=== PATIENT | female | born 1990 | race Caucasian/White ===

== ENCOUNTER 2025-10-29 12:20 | Emergency (ER) | payer BC, SELFPAY ==
--- OUTSIDE RECORDS SUMMARY | 2025-03-04 03:40 | XMS_ITS ---
Author Organization [facility] Address [address] [place] [address] Care Team Providers Care Preparer Samples And Repairs Name Role Phone NO PCP Primary Care Provider UnavailShruthi Henao Unavailable [phone] REASON FOR VISIT Weight Management (Virtual Visit) - CANCELLED Encounters Encounter Location Date Provider Diagnosis [address] [address] 03/04/2025 Shruthi Fan Plan Of Treatment No Information Progress Notes * Lennie MAGAÑADOB:[birth year] (35 yo F)Acc No.[id number]:03/04/2025 Patient: Lennie PELAEZ Provider: Maude Fan APRN :1990 A ge:34 Y S ex:Female Date:03/04/2025 External Visit ID:[id number] [id number] Pcp:NO PCP Subjective: * Chief Complaints: * 1 . Weight Management (Virtual Visit) - CANCELLED. 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
--- OUTSIDE RECORDS SUMMARY | 2025-08-30 03:26 | XMS_ITS | Encounter Summary ---
Author Organization [place] [address] Care Team Providers Care Marketing Sales Manager Name Role Phone Unavailable Primary Care Provider Unavailabl e Reason for Visit * Reason Comments Abdominal Pain Pt states she began with belching (sulfa-like smell and taste) and then around 2100 she began with LUQ pain. Pt also reports darker colored stools than normal. +n/v CPTA: none Encounter Details Date Type Department Care Team (Late st Contact Info) Description 2025 4:26 AM EDT - 2025 7:18 AM EDT [facility] [place] [address] Alberto Crenshaw MD [address] [place] [id number] Abdominal pain, unspecified abdominal location (Primary Dx); Vomiting and diarrhea Discharge Disposition: Home or Self Care Social History Tobacco Use Types Packs/Day Years Used Date Smoking Tobacco: Never Smokeless Tobacco: Never Alcohol Use Standard Drinks/Week Comments Yes 0 (1 standard drink = 0.6 oz pur e alcohol) social rare AUDIT-C Answer Date Recorded Q1: How often do you have a drink containing alc ohol? Never 10/03/2020 Average Number of Drinks Not on file 020 Frequency of Binge Drinking Not on file 09/10 Sexually Active Control Partners Comments Not Currently Comments No Sex and Gender Information Value Date Recorded Sex Assigned at Not on file Legal Sex Female 6:31 PM EDT Gender Identity Not on file Sexual Orientation Not on file documented as of this encounter Last Filed Vital Signs Vital Sign Reading Time Taken Comments Blood Pressure 109/68 2025 6:58 AM EDT Pulse 92 2025 4:20 AM EDT Temperature 36.6 C (97.9 F) 2025 4:33 AM EDT Respiratory Rate 20 2025 4:20 AM EDT Oxygen Saturation 94% 2025 7:00 AM EDT Inhaled Oxygen Concentration - - Weight 95.7 kg (211 lb) 2025 4:20 AM EDT Height 160 cm (5' 3 ) 2025 4:20 AM EDT Body Mass Index 37.38 2025 4:20 AM EDT documented in this encounter Discharge Instructions * Discharge Instructions* Alberto Crenshaw MD - 2025 7:03 AM EDT Images from the original note were not included. Dear Lennie Magaña, As we discussed, your workup today including any blood work and/or imaging that we obtained revealed: reassuring CT scan Hold Wegovy. Take zofran first and if that is not improving nausea take relan Please follow-up with a primary care provider in 2-3 days. If you do not have a primary care physician please contact your insurance provider or refer to the supplementary information you were provided with to establish care with a new physician. In addition, return to the ER immediately if: - Your symptoms worsen or do not improve as we discussed - You develop a fever (greater than 101 F) - You have new or worsening chest pain, shortness of breath, abdominal pain, or uncontrollable vomiting - You are unable to eat or drink - You pass out - You have difficulty moving your arms or legs - You have new numbness - You have difficulty speaking or slurred speech - Or you have any other concerns that you feel warrants ER evaluation It was an absolute pleasure taking care of you! No future appointments. documented in this encounter Medications at Time of Discharge famotidine (PEPCID) 20 mg Oral Tablet Take 1 Tablet by mouth 2 times daily for 15 days. 30 Tablet 2025 09/13/2025 loratadine (CLARITIN) 10 mg Oral Tablet Take 10 mg by mouth daily. 09/28/2025 metFORMIN XR (GLUCOPHAGE-XR) 750 mg Oral Tablet Sustained Release 24 hr Take 750 mg by mouth daily. 09/28/2025 metoclopramide HCl (REGLAN) 10 mg Oral Tablet Take 1 Tablet by mouth every 8 hours as needed for Nausea for up to 30 days. 20 Tablet 2025 09/13/2025 montelukast (SINGULAIR) 10 mg Oral Tablet Take 10 mg by mouth every evening. 09/28/2025 norgestimate-eth inyl estradiol (ORTHO TRI-CYCLEN;TRI-S PRINTEC) 0.18/0.215/0.25 mg-35 mcg (28) Oral Tablet Take 1 Tab by mouth daily. 09/28/2025 ondansetron (ZOFRAN-ODT) 4 mg Oral Tablet, Rapid Dissolve Dissolve 1 Tablet by mouth every 6 hours as needed for Nausea for up to 30 days. 12 Tablet 2025 09/29/2025 sertraline (ZOLOFT) 50 mg Oral Tablet Take 75 mg by mouth daily. 09/28/2025 topiramate (TOPAMAX) 25 mg Oral Tablet Take by mouth 2 times daily. 09/28/2025 documented as of this encounter Ordered Prescriptions Prescription Sig Dispense Quantity Refills Last Filled Start Date End Date metoclopramide HCl (REGLAN) 10 mg Oral Tablet Take 1 Tablet by mouth every 8 hours as needed for Nausea for up to 30 days. 20 Tablet 2025 5 ondansetron (ZOFRAN-ODT) 4 mg Oral Tablet, Rapid Dissolve Dissolve 1 Tablet by mouth every 6 hours as needed for Nausea for up to 30 days. 12 Tablet 2025 5 famotidine (PEPCID) 20 mg Oral Tablet Take 1 Tablet by mouth 2 times daily for 15 days. 30 Tablet 2025 5 documented in this encounter Discharge Disposition Disposition Code Departure Means Destination Comment s Home or Self [facility] documented in this encounter ED Notes * Lary Oliveros NP - 2025 4:18 AM EDT Chief Complaint Patient presents with ??? Abdominal Pain Pt states she began with belching (sulfa-like smell and taste) and then around 2099 she began with LUQ pain. Pt also reports darker colored stools than normal. +n/v CPTA: none Lennie Magaña is a 35 y.o. female with history of previous cholecystectomy and asthma who presents emergency department for evaluation of abdominal pain with vomiting and diarrhea. Patient states she started with stomach upset yesterday around 3 PM. She did try taking Tums with minimal relief. Around 9 PM she began having upper abdominal pain that waxes and wanes. Currently rating it a 5 out of 10 but states it does spike to an 8 out of 10. She has had nausea with associated vomiting. She reports 2 episodes of yellow to green-colored emesis. She had initially some loose stool followed by 1 diarrhea stool. She complains of rotten egg smelling belching. She has had no fever, bodyaches, or chills. She has taken no medications prior to arrival. She denies known ill contacts. States she did have some similar symptoms with vomiting and diarrhea 2 additional times in the past 2 weeks. She states the abdominal pain and foul-smelling belching is new. Patient denies alcohol consumption. Last menstrual period began yesterday. Patient History Allergies[1] Home Medications: Prior to Admission medications Medication Sig Start Date End Date Last Dose Authorizing Provider loratadine (CLARITIN) 10 mg Oral Tablet Take 10 mg by mouth daily. Provider, Historical metFORMIN XR (GLUCOPHAGE-XR) 750 mg Oral Tablet Sustained Release 24 hr Take 750 mg by mouth daily.Provider, Historical montelukast (SINGULAIR) 10 mg Oral Tablet Take 10 mg by mouth every evening. Provider, Historical norgestimate-ethinyl estradiol (ORTHO TRI-CYCLEN;TRI-SPRINTEC) 0.18/0.215/0.25 mg-35 mcg (28) Oral Tablet Take 1 Tab by mouth daily. Provider, Historical sertraline (ZOLOFT) 50 mg Oral Tablet Take 75 mg by mouth daily. Provider, Historical topiramate (TOPAMAX) 25 mg Oral Tablet Take by mouth 2 times daily. Provider, Historical Past Medical History: Past Medical History[2] Social History: reports that she has never smoked. She has never used smokeless tobacco. She reports current alcohol use. She reports that she is not currently sexually active. She reports that she does not use drugs. E-Cigarettes (such as Vapes or Juul) ??? E-Cigarette Use Never User Family History: Family History[3] Surgical History: Surgical History[4] Review of Systems Review of Systems Constitutional: Negative for chills and fever. HENT: Negative. Eyes: Negative. Respiratory: Negative for cough and shortness of breath. Cardiovascular: Negative for chest pain, palpitations and leg swelling. Gastrointestinal: Positive for abdominal pain, diarrhea, nausea and vomiting. Genitourinary: Negative for dysuria and frequency. Musculoskeletal: Negative. Skin: Negative for rash. Neurological: Negative. Psychiatric/Behavioral: Negative. All other systems reviewed and are negative. Physical Exam Blood pressure 139/94, pulse 92, temperature 97.9 ??F (36.6 ??C), temperature source Oral, resp. rate 20, height 5' 3 (1.6 m), weight 211 lb (95.7 kg), last menstrual period 08/29/2025, SpO2 98%, not currently . Physical Exam Vitals and nursing note reviewed. Constitutional: General: She is not in acute distress. Appearance: She is well-developed. She is not ill-appearing, toxic-appearing or diaphoretic. HENT: Head: Normocephalic and atraumatic. Eyes: Conjunctiva/sclera: Conjunctivae normal. Pupils: Pupils are equal, round, and reactive to light. Cardiovascular: Rate and Rhythm: Normal rate and regular rhythm. Heart sounds: Normal heart sounds. No murmur heard. No friction rub. No gallop. Pulmonary: Effort: Pulmonary effort is normal. No respiratory distress. Breath sounds: Normal breath sounds. No stridor. No wheezing, rhonchi or rales. Abdominal: General: Bowel sounds are normal. There is no distension. Palpations: Abdomen is soft. Tenderness: There is generalized abdominal tenderness and tenderness in the right upper quadrant, epigastric area and left upper quadrant. There is no guarding or rebound. Negative signs include McBurney's sign. Hernia: No hernia is present. Musculoskeletal: Cervical back: Normal range of motion and neck supple. Lymphadenopathy: Cervical: No cervical adenopathy. Skin: General: Skin is warm and dry. Capillary Refill: Capillary refill takes less than 2 seconds. Coloration: Skin is not jaundiced or pale. Findings: No rash. Neurological: Mental Status: She is alert and oriented to person, place, and time. Procedures Radiology/EKG/Labs: Results for orders placed or performed during the hospital encounter of 08/30/25 CBC WITH DIFF Result Value Ref Range WBC 8.5 3.7 - 10.3 x10(3)/mcL RBC 4.94 3.90 - 5.20 x10(6)/mcL Hgb 14.8 11.2 - 15.7 g/dL Hct 43.7 34.0 - 45.0 % MCV 88.5 80.0 - 100.0 fL MCH 30.0 26.0 - 34.0 pg MCHC 33.9 30.7 - 35.5 g/dL RDW 12.2 <=14.9 % Platelet 187 155 - 369 x10(3)/mcL MPV 10.5 8.8 - 12.5 fL Neut Percent 72.3 % Imm Gran% 0.2 % Lymph Percent 18.1 % Daggett Percent 6.6 % Eos Percent 2.6 % Baso Percent 0.2 % Neut # 6.2 (H) 1.6 - 6.1 x10(3)/mcL IMMGRAN# 0.0 0.0 - 0.1 x10(3)/mcL Lymph # 1.5 1.2 - 3.9 x10(3)/mcL Daggett # 0.6 0.3 - 0.9 x10(3)/mcL Eos# 0.2 0.0 - 0.5 x10(3)/mcL Baso # 0.0 0.0 - 0.1 x10(3)/mcL COMPREHENSIVE METABOLIC PANEL Result Value Ref Range Sodium 138 136 - 145 mmol/L Potassium 4.1 3.5 - 5.0 mmol/L Chloride 103 98 - 107 mmol/L Total CO2 22 22 - 29 mmol/L Anion Gap 13 7 - 16 mmol/L Calcium 9.6 8.6 - 10.4 mg/dL Glucose Lvl 122 (H) 70 - 99 mg/dL BUN 13 6 - 20 mg/dL Creatinine 0.76 0.51 - 1.30 mg/dL Albumin 4.3 3.5 - 5.2 gm/dL Total Protein 6.8 6.4 - 8.3 gm/dL Bili Total 0.9 0.2 - 1.3 mg/dL ALT 19 <=41 U/L AST 10 <=40 U/L Alk Phos 76 36 - 123 U/L eGFR (CKD-EPIcr 2020) 105 >=60 mL/min/1.73 m2 LACTIC ACID Result Value Ref Range Lactic Acid 1.0 0.5 - 1.9 mmol/L UA W/REFLEX TO CULTURE Specimen: Urine Narrative The following orders were created for panel order UA W/REFLEX TO CULTURE. Procedure Abnormality Status --------- ------ URINALYSIS REFLEX[[id number]] EXTRA ALVAREZ URINE CX[[id number]] Please view results for these tests on the individual orders. ED Course: Appropriate laboratory and radiology studies reviewed ED Course as of 08/30/25 0707 Others' Documentation Wed 2025 0707 RBC, UA(!): 48 On period [TS] ED Course User Index [TS] Alberto Crenshaw MD Patient is nontoxic and in no acute distress upon arrival to emergency department. She is hemodynamically stable and afebrile. Patient presents for evaluation of the above complaint. Differential diagnoses includes viral gastroenteritis, foodborne illness, pancreatitis. Will obtain baseline labs, CT abdomen pelvis. On arrival an IV was initiated and patient was given a liter normal saline as well as morphine and Zofran for symptomatic control. Labs without leukocytosis or anemia. No electrolyte derangement or evidence of acute kidney injury.No transaminitis. There is no lactic acidemia. At this time serum hCG, lipase and CT abdomen/pelvisare pending. Results are to be followed by Dr. Crenshaw, attending physician as I am going off shift. Final disposition is at his discretion. ED Clinical Impression: 1. Abdominal pain, unspecified abdominal location 2. Vomiting and diarrhea Critical Care time MDM Medical Decision Making Condition at Discharge/Transfer from Department: Stable This chart was completed using voice recognition technology and may contain unintended errors Lary Oliveros NP 08/30/25 0555 [1] Allergies Allergen Reactions ??? Motrin [Ibuprofen] Hives [2] Past Medical History: Diagnosis Date ??? Asthma ??? Endometriosis [3] Family History Problem Relation Age of Onset ??? No Known Problems Mother ??? No Known Problems Father [4] Past Surgical History: Procedure Laterality Date ??? CHOLECYSTECTOMY, LAPAROSCOPIC N/A 09/25/2020 LAPAROSCOPIC CHOLECYSTECTOMY ; Surgeon: Tucker Lynn DO; Location: [facility] MAIN OR; Service: General ??? DENTAL SURGERY ??? TONSILLECTOMY Cosigned by Alberto Crenshaw MD at 2025 7:07 AM EDT Associated attestation - Alberto Crenshaw MD - 2025 7:07 AM EDT I have reviewed the chief complaint and history of present illness and review of systems as well asthe past medical/social/family history sections for this patient. I have independently examined this patient, and participated in the care of this patient. I performed a face to face evaluation of the patient. I have reviewed the pertinent clinical information including physical exam, labs, radiographic studies and the plan. This patient was seen in coordination with PA/TAB MACHINE OPERATOR. I have performed a history and physical examination independent of the PA/TAB MACHINE OPERATOR. I have performed a substantive portion of the medical decision making. Briefly, this is a 35 y.o. female presenting with abdominal pain. This patient presents with abdominal pain of unclear etiology. A CT scan was performed to evaluate for potential causes of the abdominal pain, however, neither the clinical exam nor the CT has identified an emergent etiology for the abdominal pain. Specifically, given the benign exam, the laboratory studies, and unremarkable CT, I have a very low suspicion for appendicitis, ischemic bowel, bowel perforation, or any other life threatening disease. I have discussed with the patient the level of uncertainty with undifferentiated abdominal pain and clearly explained the need to follow-up as notedon the discharge instructions, or return to the Emergency Department immediately if the pain worsens, develops fever, persistent and uncontrollable vomiting, or for any new symptoms or concerns. In the meantime will treat with reglan or zofran + pepcid. Will hold wegovy. GI referral given. CT ABD PEL ED FAST W CONTRAST Final Result No acute abnormality of the abdomen or pelvis. - Note: Radiology results need to be interpreted within a comprehensive clinical context. If you have questions about the radiology report, please contact the office of the ordering clinician. This chart was completed using voice recognition technology and may contain unintended errors documented in this encounter Plan of Treatment Upcoming Encounters Date Type Department Care Team (Late st Contact Info) Description 11/23/2025 1:30 PM EST Office Visit [facility] [address] [facility] [address], [address] [place] [address] Kriss Reyna MD [address] [place] [address] documented as of this encounter Procedures Procedure Name Priority Date/Time Associated Diagnosis Comments URINALYSIS REFLEX STAT 2025 6:4 3 AM EDT UA W/REFLEX TO CULTURE STAT 6:43 AM EDT EXTRA ALVAREZ URINE CX STAT 2025 6 :[address] ABD PEL ED FAST W CONTRAST STAT 2025 6:10 AM EDT CBC WITH DIFF STAT 2025 4:52 AM EDT HUMAN CHORIONIC GONADOTROPIN QUANTITATIVE STAT 2025 4:52 AM EDT LIPASE LEVEL STAT 2025 4:52 AM EDT LACTIC ACID STAT 2025 4:52 AM EDT COMPREHENSIVE METABOLIC PANEL STAT 2025 4:52 AM EDT SALINE LOCK IV STAT 2025 4:48 AM EDT documented in this encounter Results * EXTRA ALVAREZ URINE CX (2025 6:43 AM EDT) Urine STRUCTURE OF URINARY TRACT PROPER / Unknown 2025 6:43 AM EDT 2025 6:47 AM EDT us Lary Oliveros NP MICROBIOLOGY - GENERAL ORDERA BLES Final Result [facility] [address] [place] [id number] * (ABNORMAL) URINALYSIS REFLEX (2025 6:43 AM EDT) UA Color Straw 2025 7:05 AM EDT [facility] UA Appear Clear Clear 2025 7:05 AM EDT [facility] UA Glucose Negative Negative mg/dL 2025 7:05 AM EDT [facility] UA Ketones Trace (5 mg/dL)(A) Negative mg/dL 2025 7:05 AM EDT [facility] UA Blood 2+ (0.2 mg/dL)(A) Negative 2025 7:05 AM EDT [facility] UA pH 8.0 5.0 - 8.0 pH 2025 7:05 AM EDT [facility] UA Protein Negative Negative mg/dL 2025 7:05 AM EDT [facility] UA Urobilinogen Normal <=1 mg/dL 7:05 AM EDT [facility] UA Bili Negative Negative 2025 7:05 AM EDT [facility] UA Nitrite Negative Negative 2025 7:05 AM EDT [facility] UA Leuk Est Negative Negative 2025 7:05 AM EDT [facility] UA Spec Grav <1.005 1.001 - 1.035 no units 2025 7:05 AM EDT [facility] Comment:Reference range bettye d for random specimens only. UA WBC <1 0 - 4 /HPF 2025 7:05 AM EDT [facility] UA RBC 48(H) 0 - 3 /HPF 2025 7:05 AM EDT [facility] UA Squam Epi 1+ /LPF 2025 7:05 AM EDT [facility] UA Mucus Trace /LPF 2025 7:05 AM EDT [facility] Urine STRUCTURE OF URINARY TRACT PROPER / Unknown 2025 6:43 AM EDT 2025 6:47 AM EDT us Lary Arlin THORNTON URINE ORDERABLES Final Result [facility] [address] [facility] , [place] [address] * CT ABD PEL ED FAST W CONTRAST (2025 6:10 AM EDT) Anatomical Region Laterality Modality Abdomen, Pelvis Computed Tomogra phy 2025 6:10 AM EDT Impressions 2025 6:35 AM EDT No acute abnormality of the abdomen or pelvis. - Note: Radiology results need to be interpreted within a comprehensive clinical context. If you have questions about the radiology report, please contact the office of the ordering clinician. Narrative 2025 6:[address] ABDOMEN AND PELVIS WITH CONTRAST (FAST), 2025 6:10 AM CLINICAL HISTORY: -abd pain. COMPARISON: None. PROCEDURE COMMENTS: Multi-detector CT scanning of the abdomen and pelvis with multiplanar reformatting per expedited protocol. Iodinated IV contrast given as recorded in EPIC. Dose 1 : CT DLP Total : 1178.45 mGycm DLP Spiral Max : 1176.37 mGycm Maximum CTDI Vol : 24.7 mGy FINDINGS: LOWER THORAX: Lung bases unremarkable. ABDOMEN AND PELVIS: Liver, spleen, pancreas, kidneys, and adrenal glands unremarkable. No hydronephrosis. Unremarkable biliary system. No bowel obstruction or acute inflammatory process. No evidence of appendicitis. No abnormal mass, fluid, or adenopathy in the pelvis. No acute osseous abnormality. Procedure Note Tomer Pierce MD - 2025 CT ABDOMEN AND PELVIS WITH CONTRAST (FAST), 2025 6:10 AM CLINICAL HISTORY: -abd pain. COMPARISON: None. PROCEDURE COMMENTS: Multi-detector CT scanning of the abdomen and pelviswith multiplanar reformatting per expedited protocol. Iodinated IV contrastgiven as recorded in EPIC. Dose 1 : CT DLP Total : 1178.45 mGycm DLP Spiral Max : 1176.37 mGycm Maximum CTDI Vol : 24.7 mGy FINDINGS: LOWER THORAX: Lung bases unremarkable. ABDOMEN AND PELVIS: Liver, spleen, pancreas, kidneys, and adrenal glands unremarkable. No hydronephrosis. Unremarkable biliary system. No bowel obstruction or acute inflammatory process. No evidence ofappendicitis. No abnormal mass, fluid, or adenopathy in the pelvis. No acute osseous abnormality. IMPRESSION: No acute abnormality of the abdomen or pelvis. - Note: Radiology results need to be interpreted within a comprehensiveclinical context. If you have questions about the radiology report, please contactthe office of the ordering clinician. Lary Oliveros NP IMG CT ORDERABLES Final Resul t * HUMAN CHORIONIC GONADOTROPIN QUANTITATIVE (2025 4:52 AM EDT) Hcg Quant <1 <5 mIU/mL 2025 5:5 7 AM EDT [facility] Blood VENOUS BLOOD / Unknown Venipuncture / Unknown 2025 4:52 AM EDT 2025 4:58 AM EDT Narrative [facility] - 2025 5:57 AM EDT Female (non-): 0-4.9 mIU/mL Female (postmenopausal): 0-8.1 mIU/mL Indeterminate values for (e.g., 5-25 mIU/mL) may be confirmed with a repeat test in 48-72 hours. Values in should double every 2-3 days for the first six weeks. Ingestion of josette doses of biotin (>5 mg/day) taken within 8 hours of drawing blood sample can interfere with this immunoassay test. us Lary Oliveros NP CHEMISTRY ORDERABLES Final Re sult [facility] [address] [facility] , [place] [address] * LACTIC ACID (2025 4:52 AM EDT) Lactic Acid 1.0 0.5 - 1.9 mmol/L 2025 5:36 AM EDT [facility] Blood VENOUS BLOOD / Unknown Venipuncture / Unknown 2025 4:52 AM EDT 2025 4:57 AM EDT Lary Oliveros NP CHEMISTRY ORDERABLES Final Re sult Performing Organization Address [facility]/ZIP Co de Phone Number [facility], [facility] [address] [facility] , [place] [address] * LIPASE LEVEL (2025 4:52 AM EDT) Lipase Lvl 22 13 - 60 U/L 2025 6:12 AM EDT [facility], [facility] Blood VENOUS BLOOD / Unknown Venipuncture / Unknown 2025 4:52 AM EDT 2025 4:58 AM EDT Lary Oliveros NP CHEMISTRY ORDERABLES Final Re sult Performing Organization Address [facility] Co de Phone Number [facility], [facility] [address] [facility] , [place] [address] * (ABNORMAL) COMPREHENSIVE METABOLIC PANEL (2025 4:52 AM EDT) Sodium 138 136 - 145 mmol/L 2025 5:23 AM EDT [facility] Potassium 4.1 3.5 - 5.0 mmol/L 2025 5:23 AM EDT [facility] Chloride 103 98 - 107 mmol/L 2025 5:23 AM EDT [facility] Total CO2 22 22 - 29 mmol/L 2025 5:23 AM EDT [facility] Anion Gap 13 7 - 16 mmol/L 2025 5:23 AM EDT [facility] Calcium 9.6 8.6 - 10.4 mg/dL 2025 5:23 AM EDT [facility], [facility] Glucose Lvl 122(H) 70 - 99 mg/dL 2025 5:23 AM EDT [facility], [facility] BUN 13 6 - 20 mg/dL 2025 5:23 AM EDT [facility] Creatinine 0.76 0.51 - 1.30 mg/dL 2025 5:23 AM EDT [facility] Albumin 4.3 3.5 - 5.2 gm/dL 2025 5:23 AM EDT [facility] Total Protein 6.8 6.4 - 8.3 gm/dL 2025 5:23 AM EDT [facility] Bili Total 0.9 0.2 - 1.3 mg/dL 2025 5:23 AM EDT [facility] ALT 19 <=41 U/L 2025 5:23 AM EDT [facility] AST 10 <=40 U/L 2025 5:23 AM EDT [facility], [facility] Alk Phos 76 36 - 123 U/L 2025 5:23 AM EDT [facility], [facility] eGFR (CKD-EPIcr 2020) 105 >=60 mL/min/1.7 3 m2 2025 5:23 AM EDT [facility], [facility] Comment:Estimated GFR was ca lculated using the CKD-EPIcr (2020) equation refit without race. The equation is recommended by the National Kid[employer] - [place] [employer] of Nephrology Task Force. Blood VENOUS BLOOD / Unknown Venipuncture / Unknown 2025 4:52 AM EDT 2025 4:58 AM EDT us Lary Oliveros NP CHEMISTRY ORDERABLES Final Re sult [facility], [facility] [address] [facility] , [place] [address] * (ABNORMAL) CBC WITH DIFF (2025 4:52 AM EDT) WBC 8.5 3.7 - 10.3 x10(3)/mcL 2025 5:04 AM EDT [facility] RBC 4.94 3.90 - 5.20 x10(6)/mcL 2025 5:04 AM EDT [facility] Hgb 14.8 11.2 - 15.7 g/dL 2025 5:04 AM EDT [facility] Hct 43.7 34.0 - 45.0 % 2025 5:04 AM EDT [facility] MCV 88.5 80.0 - 100.0 fL 2025 5:04 AM EDT [facility] MCH 30.0 26.0 - 34.0 pg 2025 5:04 AM EDT [facility] MCHC 33.9 30.7 - 35.5 g/dL 2025 5:04 AM EDT [facility] RDW 12.2 <=14.9 % 2025 5:04 AM EDT [facility] Platelet 187 155 - 369 x10(3)/mcL 2025 5:04 AM EDT [facility] MPV 10.5 8.8 - 12.5 fL 2025 5:04 AM EDT [facility] Neut Percent 72.3 % 2025 5:04 AM EDT [facility] Comment:Neutrophils equals s egs plus bands Imm Gran% 0.2 % 2025 5:04 AM EDT [facility] Comment:Automated count of m etamyelocytes, myelocytes and promyelocytes. Lymph Percent 18.1 % 2025 5:04 AM EDT [facility] [place] Percent 6.6 % 2025 5:04 AM EDT [facility] Eos Percent 2.6 % 2025 5:04 AM EDT [facility] Baso Percent 0.2 % 2025 5:04 AM EDT [facility] Neut # 6.2(H) 1.6 - 6.1 x10(3)/[facility] 2025 5:04 AM EDT [facility], [facility] Comment:Neutrophils equals s egs plus bands IMMGRAN# 0.0 0.0 - 0.1 x10(3)/[facility] 2025 5:04 AM EDT [facility], [facility] Comment:Automated count of m etamyelocytes, myelocytes and promyelocytes. An absolute IG <0.1 is reported as 0.0. Lymph # 1.5 1.2 - 3.9 x10(3)/[facility] 2025 5:04 AM EDT [facility] Daggett # 0.6 0.3 - 0.9 x10(3)/[facility] 2025 5:04 AM EDT [facility], [facility] Eos# 0.2 0.0 - 0.5 x10(3)/[facility] 2025 5:04 AM EDT [facility], [facility] Baso # 0.0 0.0 - 0.1 x10(3)/[facility] 2025 5:04 AM EDT [facility], [facility] Blood VENOUS BLOOD / Unknown Venipuncture / Unknown 2025 4:52 AM EDT 2025 4:58 AM EDT us Lary Oliveros NP HEMATOLOGY ORDERABLES Final R esult [facility], [facility] [address] [facility] , [place] [address] documented in this encounter Visit Diagnoses Diagnosis Abdominal pain, unspecified abdominal location- Primary Vomiting and diarrhea Vomiting alone documented in this encounter Administered Medications Inactive Administered Medications - up to 1 most recent administrations Medication Order MAR Action Action Date Dose Rate Site famotidine (PEPCID) injection 20 mg 20 mg, Intravenous, ONCE, 1 dose, On Thu08/30/25 at 0700 Given 2025 6:59 AM EDT 20 mg iopamidoL (ISOVUE-370) 370 mg iodine /mL (76 %) injection (LOW) 100 mL 100 mL, Intravenous, ONCE PRN, 1 dose, Starting on Thu08/30/25 at 0558, Until Thu08/30/25 at 0610, Radiography/Imaging, Radiology Procedure, VESICANT , CT (Contrasts) Given 2025 6:10 AM EDT 100 mL metoclopramide HCl (REGLAN) injection 10 mg 10 mg, Intravenous, ONCE, 1 dose, On Thu08/30/25 at 0700 Given 2025 6:59 AM EDT 10 mg morphine injection 4 mg 4 mg, Intravenous, ONCE, 1 dose, On Thu08/30/25 at 0500 Given 2025 4:58 AM EDT 4 mg ondansetron (ZOFRAN) injection 4 mg 4 mg, Intravenous, ONCE, 1 dose, On Thu08/30/25 at 0500 Given 2025 4:58 AM EDT 4 mg ondansetron (ZOFRAN) injection 4 mg 4 mg, Intravenous, ONCE, 1 dose, On Thu08/30/25 at 0600 Given 2025 6:42 AM EDT 4 mg sodium chloride 0.9 % 1,000 mL IV bolus Intravenous, ONCE, 1 dose, On Thu08/30/25 at 0500, at 983.6 mL/hr IV Started 2025 5:04 AM EDT 983.6 mL/hr sodium chloride 0.9% IV line flush 50 mL 50 mL, Intravenous, at 999 mL/hr, PRN, Starting on Thu08/30/25 at 0448, Until Thu08/30/25 at 1124, Line Care, Flush with 50 mL after IVPB to insure complete administration of the dose. May use the saline infusion to back flush IVPB tubing as needed., Use this order to document priming and flushing IV line after medication administration. sodium chloride 0.9% syringe 10 mL 10 mL, Intravenous, ONCE PRN, 1 dose, Starting on Thu08/30/25 at 0558, Until Thu08/30/25 at 0610, Line Care, Flush peripheral lines every 12 hours, central lines every 8 hours, and after IV medication, CT (Contrasts) Given 2025 6:10 AM EDT 10 mL sodium chloride 0.9% syringe 5-10 mL 5-10 mL, Intravenous, PRN, Starting on Thu08/30/25 at 0448, Until Thu08/30/25 at 1124, Line Care, Flush with 5 mL saline pre/post IVP, and 5 mL prior to IVPB or blood product administration. Protocol for PERIPHERAL IV saline lock maintenance, flush with 3-5 mL saline syringe every 8 hours., Flush peripheral lines every 12 hours, central lines every 8 hours, and after IV medication documented in this encounter Active and Recently Administered Medications Times are shown in EDT. Scheduled Medication Order 08/28/2025 08/29/2025 2025 famotidine (PEPCID) injection 20 mg (COMPLETED) 20 mg, Intravenous, ONCE, 1 dose, On Thu08/30/25 at 0700 0659 (Given - Provid er: Shasta Edwards RN) metoclopramide HCl (REGLAN) injection 10 mg (COMPLETED) 10 mg, Intravenous, ONCE, 1 dose, On Thu08/30/25 at 0700 0659 (Given - Provid er: Shasta Edwards RN) morphine injection 4 mg (COMPLETED) 4 mg, Intravenous, ONCE, 1 dose, On Thu08/30/25 at 0500 0458 (Given - Provid er: Shasta Edwards RN) ondansetron (ZOFRAN) injection 4 mg (COMPLETED) 4 mg, Intravenous, ONCE, 1 dose, On Thu08/30/25 at 0500 0458 (Given - Provid er: Shasta Edwards RN) ondansetron (ZOFRAN) injection 4 mg (COMPLETED) 4 mg, Intravenous, ONCE, 1 dose, On Thu08/30/25 at 0600 0642 (Given - Provid er: Tala Shen RN) sodium chloride 0.9 % 1,000 mL IV bolus (COMPLETED) Intravenous, ONCE, 1 dose, On Thu08/30/25 at 0500, at 983.6 mL/hr 0504 (IV Started - P rovider: Shasta Edwards RN)0605 (Stopped - Provider: Tala Shen RN) PRN Medication Order 08/28/2025 08/29/2025 2025 iopamidoL (ISOVUE-370) 370 mg iodine /mL (76 %) injection (LOW) 100 mL (COMPLETED) 100 mL, Intravenous, ONCE PRN, 1 dose, Starting on Thu08/30/25 at 0558, Until Thu08/30/25 at 0610, Radiography/Imaging, Radiology Procedure, VESICANT , CT (Contrasts) 0610 (Given - Provid er: Sudeep Cardoso, RT) sodium chloride 0.9% IV line flush 50 mL 50 mL, Intravenous, at 999 mL/hr, PRN, Starting on Thu08/30/25 at 0448, Until Thu08/30/25 at 1124, Line Care, Flush with 50 mL after IVPB to insure complete administration of the dose. May use the saline infusion to back flush IVPB tubing as needed., Use this order to document priming and flushing IV line after medication administration. sodium chloride 0.9% syringe 10 mL (COMPLETED) 10 mL, Intravenous, ONCE PRN, 1 dose, Starting on Thu08/30/25 at 0558, Until Thu08/30/25 at 0610, Line Care, Flush peripheral lines every 12 hours, central lines every 8 hours, and after IV medication, CT (Contrasts) 0610 (Given - Provid er: Sudeep Cardoso, RT) sodium chloride 0.9% syringe 5-10 mL 5-10 mL, Intravenous, PRN, Starting on Thu08/30/25 at 0448, Until Thu08/30/25 at 1124, Line Care, Flush with 5 mL saline pre/post IVP, and 5 mL prior to IVPB or blood product administration. Protocol for PERIPHERAL IV saline lock maintenance, flush with 3-5 mL saline syringe every 8 hours., Flush peripheral lines every 12 hours, central lines every 8 hours, and after IV medication documented in this encounter Orders Medications Ordered That Aj ht Not Have Been Administered Count Last Ordered Date First Ordered Date sodium chloride 0.9% IV line flush 50 mL 1 2025 sodium chloride 0.9% syringe 5-10 mL 1 08/10 IV Count Last Ordered Date First Orde red Date SALINE LOCK IV 1 2025 documented in this encounter
--- OUTSIDE RECORDS SUMMARY | 2025-09-13 15:45 | XMS_ITS | Encounter Summary ---
Author Organization [place] [address] Care Team Providers Care Intelligence Analyst Name Role Phone Unavailable Primary Care Provider Unavailabl e Reason for Referral * Ultrasound (Routine) - Closed Specialty Diagnoses / Procedures Referred By Contac t Referred To Contact Radiology Diagnoses Epigastric abdominal pain Procedures US RIGHT UPPER QUADRANT Kriss Reyna MD [address] [place] [address] Phone: tel: fax: Referral ID Status Reason Start Date Expiration Date Visits Re quested Visits Authorized [id number] Closed 09/13/2025 09/13/2026 1 1 * GI Procedure (Routine) - Pending Review Specialty Diagnoses / Procedures Referred By Contac t Referred To Contact Diagnoses Epigastric abdominal pain Procedures AMB EGD W ANESTH COMM ORDER Kriss Reyna MD [address] [place] [address] Phone: tel: fax: Referral ID Status Reason Start Date Expiration Date V isits Requested Visits Authorized [id number] Pending Review 09/13/2025 09/13/2026 1 1 Reason for Visit * Reason Comments Abdominal Pain Hospital Follow Up Nausea Emesis Diarrhea * Consultation (Routine) - Pending Review Specialty Diagnoses / Procedures Referred By Contact Referred To Contact Internal Medicine-Gastroenterology / Gastroenterology Diagnoses [id number] abd pain Procedures MYCHART VIDEO NEW PATIENT Kriss Reyna MD [address] [place] [address] Phone: tel: fax: Kriss Reyna MD [address] [place] [address] Phone: tel:[phone] fax:[phone] Referral ID Status Reason Start Date Expiration Date V isits Requested Visits Authorized [id number] Pending Review 09/13/2025 09/13/2026 99 99 Encounter Details Date Type Department Care Team (Late st Contact Info) Description 09/13/2025 3:45 PM EST Telemedicine [facility] [address] [facility] [address] [place] [address] Kriss Reyna MD [address] [place] [address] Epigastric abdominal pain (Primary Dx); Nausea and vomiting, unspecified vomiting type Social History Tobacco Use Types Packs/Day Years [...] on file documented as of this encounter Ordered Prescriptions Prescription Sig Dispense Quantity Refills Last Filled Start Date End Date metoclopramide HCl (REGLAN) 5 mg Oral TabletIndications: Epigastric abdominal pain,Nausea and vomiting, unspecified vomiting type Take 1 Tablet by mouth 4 times daily. 120 Tablet 09/13/2025 famotidine (PEPCID) 20 mg Oral Tablet Take 1 Tablet by mouth 2 times daily for 15 days. 30 Tablet 09/13/2025 09/28/2025 famotidine (PEPCID) 20 mg Oral TabletIndications: Epigastric abdominal pain Take 1 Tablet by mouth daily. 09/13/2025 09/22/2025 metoclopramide HCl (REGLAN) 10 mg Oral Tablet Take 1 Tablet by mouth every 8 hours as needed for Nausea for up to 30 days. 20 Tablet 09/13/2025 09/22/2025 metoclopramide HCl (REGLAN) 5 mg Oral Tablet Take 1 Tablet by mouth 4 times daily. 120 Tablet 09/13/2025 09/22/2025 documented in this encounter Progress Notes * Kriss Reyna MD - 09/13/2025 3:45 PM EST [facility] Gastroenterology Consultation Note CHIEF COMPLAINT: Chief Complaint Patient presents with Abdominal Pain Hospital Follow Up Nausea Emesis Diarrhea The appointment today was completed as a video visit. The patient stated they were in the [facility] during the time of the video visit. The patient provided verbal consent to a Telemedicine Visit and understands that this does not replace a face to face encounter. The patient understands that the physician may determine that they need to see them in the office. The patient understands that their insurance will be billed as if they had been in person. SUBJECTIVE Lennie Magaña is a 35 y.o. female here for follow up on epigastric pain , nausea and emesis. She was seen on 08/30 in ER for abdominal pain. She was treated with zofran and pepcid. She is s/p CCY. She has been complaining of belching, nausea, emesis and diarrhea. She is on wegovy. In ER she was recommended to hold wegovy. History of Present Illness ROS Constitutional: Negative for fever, chills and unexpected weight change. HEENT: Negative for hearing loss, ear pain and trouble swallowing. Negative for visual disturbance. Respiratory: Negative for cough, chest tightness and shortness of breath. Cardiovascular: Negative for chest pain and leg swelling. Musculoskeletal: Negative for joint swelling and arthralgias. Skin: Negative for pallor. Neurological: Negative for dizziness, seizures and headaches. Hematological: Does not bruise/bleed easily. All other review of systems negative, except for those noted. MEDICATIONS Current Medications[1] ALLERGIES Allergies[2] PAST MEDICAL HISTORY Past Medical History[3] PAST SURGICAL HISTORY Surgical History[4] FAMILY HISTORY Family History[5] SOCIAL HISTORY Social History Socioeconomic History Marital status: Single Spouse name: Not on file Number of children: Not on file Years of education: Not on file Highest education level: Not on file Occupational History Not on file Tobacco Use Smoking status: Never Smokeless tobacco: Never Vaping Use Vaping status: Never Used Substance and Sexual Activity Alcohol use: Yes Comment: social rare Drug use: Never Sexual activity: Not Currently Other Topics Concern Not on file Social History Narrative Not on file Social Drivers of Health Financial Resource Strain: Not on file Food Insecurity: Not on file Transportation Needs: Not on file Physical Activity: Not on file Stress: Not on file Social Connections: Not on file Intimate Partner Violence: Not on file Housing Stability: Not on file PHYSICAL EXAM: There were no vitals filed for this visit. Physical Exam: Alert, well appearing, no distress Appears to have normal nutrition and hydration Speaking in full sentences comfortably, normal work of breathing, no cough during visit No confusion, normal mentation, affect and behavior . RESULTS Lab Results Component Value Date WBC 8.5 2025 HGB 14.8 2025 HCT 43.7 2025 MCV 88.5 2025 PLT 187 2025 Lab Results Component Value Date ALT 19 2025 AST 10 2025 ALKPHOS 76 2025 Lab Results Component Value Date LIPASE 22 2025 Lab Results Component Value Date NA 138 2025 K 4.1 2025 CL 103 2025 CO2 22 2025 BUN 13 2025 PROBLEM LIST Problem List[6] FINAL DIAGNOSIS 1. Epigastric abdominal pain AMB EGD W ANESTH COMM ORDER US RIGHT UPPER QUADRANT metoclopramide HCl (REGLAN) 5 mg Oral Tablet DISCONTINUED: famotidine (PEPCID) 20 mg Oral Tablet 2. Nausea and vomiting, unspecified vomiting type metoclopramide HCl (REGLAN) 5 mg Oral Tablet VISIT ORDERS Orders Placed This Encounter Procedures Ultrasound right upper quadrant Standing Status: Future Expiration Date: 09/13/2026 Release to Patient: Immediate EGD w/ Anesthesia Comm Order ASSESSMENT & PLAN Diagnoses and all orders for this visit: Epigastric abdominal pain - AMB EGD W ANESTH COMM ORDER - US RIGHT UPPER QUADRANT; Future - metoclopramide HCl (REGLAN) 5 mg Oral Tablet; Take 1 Tablet by mouth 4 times daily. Dispense: 120Tablet; Refill: 0 Nausea and vomiting, unspecified vomiting type - metoclopramide HCl (REGLAN) 5 mg Oral Tablet; Take 1 Tablet by mouth 4 times daily. Dispense: 120Tablet; Refill: 0 Other orders - famotidine (PEPCID) 20 mg Oral Tablet; Take 1 Tablet by mouth 2 times daily for 15 days. Dispense: 30 Tablet; Refill: 0 Assessment & Plan Nausea, fullness, epigastric pain -suspect gastroparesis. EGD to r/o PUD, gastritis, GOO, side effects of Wegovy. Reglan 5 mg TID prn, hold Wegovy, follow up with results. 1. The patient indicates understanding of these issues and agrees with the plan. 2. I reviewed the patient's medical information and medical history. 3. I have reviewed the past medical, family, and social history sections including the medications and allergies listed in the above medical record. The provider educated the patient (or legal textile machinery sales representative) on the use of the ambient listening artificial intelligence tool, EPIS. They were informed that this AI tool processes the conversation to generate a clinical note with the expected benefit of improved accuracy while achieving an improved encounter experience for the patient and provider.?The provider explained that the medical information captured by the AI tool including, but not limited to, diagnoses and treatment plan would be protected in accordance with applicable privacy laws and that all diagnoses and treatment decisions would be made by the provider. The provider explained that the note generated will be reviewed bythe provider for accuracy to minimize potential errors.? The patient was given an opportunity to ask questions and opt out of proceeding with the use of the AI tool. After being informed of such information, the patient (or legal textile machinery sales representative), and each individual in attendance with the patient, verbally consented to the use of the AI tool. Electronically signed by: Kriss Reyna MD, 09/23/2025 3:23 PM CC: No primary care provider on file. [1] Current Outpatient Medications Medication Sig Dispense Refill famotidine (PEPCID) 20 mg Oral Tablet Take 1 Tablet by mouth 2 times daily for 15 days. 30 Tablet 0 loratadine (CLARITIN) 10 mg Oral Tablet Take 10 mg by mouth daily. metFORMIN XR (GLUCOPHAGE-XR) 750 mg Oral Tablet Sustained Release 24 hr Take 750 mg by mouth daily. montelukast (SINGULAIR) 10 mg Oral Tablet Take 10 mg by mouth every evening. norgestimate-ethinyl estradiol (ORTHO TRI-CYCLEN;TRI-SPRINTEC) 0.18/0.215/0.25 mg-35 mcg (28) Oral Tablet Take 1 Tab by mouth daily. ondansetron (ZOFRAN-ODT) 4 mg Oral Tablet, Rapid Dissolve Dissolve 1 Tablet by mouth every 6 hours as needed for Nausea for up to 30 days. 12 Tablet 0 sertraline (ZOLOFT) 50 mg Oral Tablet Take 75 mg by mouth daily. topiramate (TOPAMAX) 25 mg Oral Tablet Take by mouth 2 times daily. metoclopramide HCl (REGLAN) 5 mg Oral Tablet Take 1 Tablet by mouth 4 times daily. 120 Tablet 0 No current facility-administered medications for this visit. [2] Allergies Allergen Reactions [place] Hives Coconut Hives Budesonide Other (See Comments) But NOT other ICS Motrin [Ibuprofen] Hives [3] Past Medical History: Diagnosis Date Asthma Endometriosis [4] Past Surgical History: Procedure Laterality Date CHOLECYSTECTOMY, LAPAROSCOPIC N/A 09/25/2020 LAPAROSCOPIC CHOLECYSTECTOMY ; Surgeon: Tucker Lynn DO; Location: [facility] [place]; Service: General DENTAL SURGERY TONSILLECTOMY [5] Family History Problem Relation Age of Onset No Known Problems Mother No Known Problems Father [6] Patient Active Problem List Diagnosis Symptomatic cholelithiasis Acute cholecystitis due to biliary calculus S/P laparoscopic cholecystectomy documented in this encounter Plan of Treatment Upcoming Encounters Date Type Department Care Team (Late st Contact Info) Description 11/23/2025 1:30 PM EST Office Visit [facility] [address] [facility] [address] [place] [address] Kriss Reyna MD [address] [place] [address] documented as of this encounter Results * US RIGHT UPPER QUADRANT (09/24/2025 10:33 AM EST) Anatomical Region Laterality Modality Abdomen Ultrasound 09/24/2025 10:3 3 AM EST Impressions 09/24/2025 10:44 AM EST No acute findings or abnormalities to explain the patient's symptoms. Note: Radiology results need to be interpreted within a comprehensive clinical context. If you have questions about the radiology report, please contact the office of the ordering clinician. Narrative 09/24/2025 10:44 AM EST CLINICAL HISTORY: R10.13-Epigastric [id number]. COMPARISON: 09/24/2020. TECHNIQUE: US RIGHT UPPER QUADRANT on 09/24/2025 10:33 AM. FINDINGS: The liver was sonographically normal. There was no evidence of biliary ductal dilation. The gallbladder has been removed. The visualized portions of the pancreas and right kidney were unremarkable. Procedure Note Blayne Mendez MD - 09/24/2025 CLINICAL HISTORY: R10.13-Epigastric [id number]. COMPARISON: 09/24/2020. TECHNIQUE: US RIGHT UPPER QUADRANT on 09/24/2025 10:33 AM. FINDINGS: The liver was sonographically normal. There was no evidence ofbiliary ductal dilation. The gallbladder has been removed. The visualized portions of the pancreas and right kidney wereunremarkable. IMPRESSION: No acute findings or abnormalities to explain the patient's symptoms. Note: Radiology results need to be interpreted within a comprehensiveclinical context. If you have questions about the radiology report, please contactthe office of the ordering clinician. Kriss Reyna MD [facility] ORDERABLES Final Resul t documented in this encounter Visit Diagnoses Diagnosis Epigastric abdominal pain- Primary Abdominal pain, epigastric Nausea and vomiting, unspecified vomiting type Epigastric abdominal pain Abdominal pain, epigastric documented in this encounter Discontinued Medications Medication Sig Discontinue Reason Start Date End Da te metoclopramide HCl (REGLAN) 10 mg Oral Tablet Take 1 Tablet by mouth every 8 hours as needed for Nausea for up to 30 days. Reorder 2025 09/13/2025 famotidine (PEPCID) 20 mg Oral Tablet Take 1 Tablet by mouth 2 times daily for 15 days. Reorder 2025 09/13/2025 documented as of this encounter Orders Nursing Count Last Ordered Date First Orde red Date AMARJIT EGD W ANESTH COMM ORDER 1 09/13/2025 documented in this encounter
--- OUTSIDE RECORDS SUMMARY | 2025-09-24 09:53 | XMS_ITS | Encounter Summary ---
Author Organization [place] [address] Care Team Providers Care Php Lamp Developer Name Role Phone Unavailable Primary Care Provider Unavailabl e Reason for Referral * Ultrasound (Routine) - Closed Specialty Diagnoses / Procedures Referred By Contac t Referred To Contact Radiology Diagnoses Epigastric abdominal pain Procedures US RIGHT UPPER QUADRANT Kriss Reyna MD [address] [place] [address] Phone: tel: fax: Referral ID Status Reason Start Date Expiration Date Visits Re quested Visits Authorized [id number] Closed 09/13/2025 09/13/2026 1 1 Reason for Visit * Ultrasound (Routine) - Closed Specialty Diagnoses / Procedures Referred By Contac t Referred To Contact Radiology Diagnoses Epigastric abdominal pain Procedures US RIGHT UPPER QUADRANT Kriss Reyna MD [address] [place] [address] Phone: tel: fax: Referral ID Status Reason Start Date Expiration Date Visits Re quested Visits Authorized [id number] Closed 09/13/2025 09/13/2026 1 1 Encounter Details Date Type Department Care Team (Latest Contact Info) Description 09/24/2025 9:53 AM EST - 09/24/2025 11:59 PM EST Hospital Encounter [facility] [address] [place], [place] [address] [phone] Kriss Reyna MD [address] [place] [phone] Epigastric abdominal pain Discharge Disposition: Home or Self Care Social [...] on file documented as of this encounter Medications at Time of Discharge metoclopramide HCl (REGLAN) 5 mg Oral TabletIndications :Epigastric abdominal pain,Nausea and vomiting, unspecified vomiting type Take 1 Tablet by mouth 4 times daily. 120 Tablet 09/13/2025 famotidine (PEPCID) 20 mg Oral Tablet Take 1 Tablet by mouth 2 times daily for 15 days. 30 Tablet 09/13/2025 5 loratadine (CLARITIN) 10 mg Oral Tablet Take 10 mg by mouth daily. 5 metFORMIN XR (GLUCOPHAGE-XR) 750 mg Oral Tablet Sustained Release 24 hr Take 750 mg by mouth daily. 5 montelukast (SINGULAIR) 10 mg Oral Tablet Take 10 mg by mouth every evening. 5 norgestimate-ethi nyl estradiol (ORTHO TRI-CYCLEN;TRI-SP RINTEC) 0.18/0.215/0.25 mg-35 mcg (28) Oral Tablet Take 1 Tab by mouth daily. 5 ondansetron (ZOFRAN-ODT) 4 mg Oral Tablet, Rapid Dissolve Dissolve 1 Tablet by mouth every 6 hours as needed for Nausea for up to 30 days. 12 Tablet 2025 5 sertraline (ZOLOFT) 50 mg Oral Tablet Take 75 mg by mouth daily. 5 topiramate (TOPAMAX) 25 mg Oral Tablet Take by mouth 2 times daily. 5 documented as of this encounter Discharge Disposition Disposition Code Departure Means Destination Home or Self Care documented in this encounter Plan of Treatment Upcoming Encounters Date Type Department Care Team (Late st Contact Info) Description 11/23/2025 1:30 PM EST Office Visit [facility] [address] [facility] [address] [place] [address] Kriss Reyna MD [address] [place] [address] documented as of this encounter Procedures Procedure Name Priority Date/Time Associated Diagnosis Comments US RIGHT UPPER QUADRANT Routine 09/24/2025 10:33 AM EST Epigastric abdominal pain documented in this encounter Results * US RIGHT UPPER [...] 09/24/2025 10:44 AM EST CLINICAL HISTORY: R10.13-Epigastric [id number]. COMPARISON: 09/24/2020. TECHNIQUE: US RIGHT UPPER QUADRANT on 09/24/2025 10:33 AM. FINDINGS: The liver was sonographically normal. There was no evidence of biliary ductal dilation. The gallbladder has been removed. The visualized portions of the pancreas and right kidney were unremarkable. Procedure Note Blayne Mendez MD - 09/24/2025 CLINICAL HISTORY: R10.13-Epigastric [id number]. COMPARISON: 09/24/2020. TECHNIQUE: US RIGHT UPPER QUADRANT [...] please contactthe office of the ordering clinician. us Kriss Reyna MD [facility] ORDERABLES Final Resul t documented in this encounter Visit Diagnoses Diagnosis Epigastric abdominal pain Abdominal pain, epigastric documented in this encounter
--- OUTSIDE RECORDS SUMMARY | 2025-09-28 10:08 | XMS_ITS | Encounter Summary ---
Author [place] [address] Care Team Providers Care Precipitation Equipment Tender Name Role Phone Unavailable Primary Care Provider Unavailabl e Reason for Referral * Surgical (Routine) - Authorization Not Needed Specialty Diagnoses / Procedures Referred By Contact Referred To Contact Gastroenterology Diagnoses Epigastric abdominal pain Procedures ESOPHAGOGASTRODUODENOSCOPY (EGD) VT ESOPHAGOGASTRODUODENOSCOPY TRANSORAL DIAGNOSTIC VT DILATION ESOPH UNGUIDED SOUND/BOUGIE 1/MULT PASS VT EGD INSERT GUIDE WIRE DILATOR PASSAGE ESOPHAGUS VT EGD BALLOON DILATION ESOPHAGUS <30 MM DIAM VT EGD TRANSORAL BIOPSY SINGLE/MULTIPLE Kriss Reyna MD [address] [place] [address] Phone: tel:[phone] fax:[phone] Referral ID Status Reason Start Date Expiration Date Visits Requested Visits Authorized [id number] Authorization Not Needed 09/13/2025 09/13/2026 1 1 Reason for Visit * Surgical (Routine) - Authorization Not Needed Specialty Diagnoses / Procedures Referred By Contact Referred To Contact Gastroenterology Diagnoses Epigastric abdominal pain Procedures ESOPHAGOGASTRODUODENOSCOPY (EGD) VT ESOPHAGOGASTRODUODENOSCOPY TRANSORAL DIAGNOSTIC VT DILATION ESOPH UNGUIDED SOUND/BOUGIE 1/MULT PASS VT EGD INSERT GUIDE WIRE DILATOR PASSAGE ESOPHAGUS VT EGD BALLOON DILATION ESOPHAGUS <30 MM DIAM VT EGD TRANSORAL BIOPSY SINGLE/MULTIPLE Kriss Reyna MD [address] [place] [address] Phone: tel:[phone] fax:[phone] Referral ID Status Reason Start Date Expiration Date Visits Requested Visits Authorized [id number] Authorization Not Needed 09/13/2025 09/13/2026 1 1 Encounter Details Date Type Department Care Team (Latest Contact Info) Description 09/28/2025 10:08 AM EST - 09/28/2025 11:59 PM EST Hospital Encounter [facility] [address] [place] [address] Kriss Reyna MD [address] [place] [address] Joey Metz CRNA [address] [place] [address] Nadja Woods MD [address] [facility] [place] [address] [place] [address] Preop testing (Primary Dx); Epigastric abdominal pain Discharge Disposition: Home or Self Care Social History Tobacco Use Types Packs/Day Years Used Date Smoking Tobacco: Never Smokeless Tobacco: Never Tobacco Cessation:Counseling Given: Not Answered Alcohol Use Standard Drinks/Week Comments Yes 1 (1 standard drink = 0.6 oz pur e alcohol) Only drink occasionally AUDIT-C Answer Date Recorded Q1: How often do you have a drink containing alc ohol? Never 10/03/2020 Average Number of Drinks Not on file 020 Frequency of Binge Drinking Not on file 09/10 Sexually Active Control Partners Comments Not Currently Male Comments No Sex and Gender Information Value Date Recorded Sex Assigned at Not on file Legal Sex Female 6:31 PM EDT Gender Identity Not on file Sexual Orientation Not on file documented as of this encounter Last Filed Vital Signs Vital Sign Reading Time Taken Comments Blood Pressure 124/71 09/28/2025 11:54 AM EST Pulse 82 09/28/2025 11:54 AM EST Temperature 36.1 C (97 F) 09/28/2025 10:25 AM EST Respiratory Rate 18 09/28/2025 11:5 4 AM EST Oxygen Saturation 100% 09/28/2025 11: 54 AM EST Inhaled Oxygen Concentration - - Weight 97.4 kg (214 lb 11.2 oz) 025 10:26 AM EST Height 160 cm (5' 3 ) 09/28/2025 10:26 AM EST Body Mass Index 38.03 09/28/2025 10:26 AM EST documented in this encounter Discharge Instructions * Discharge Instructions* Lilliam Barnes RN - 09/28/2025 10:31 AM EST +++++++++++++++++++++++++++++++++++++ [facility] Discharge Instructions After Anesthesia We appreciate the opportunity to care for you today! Here are a few reminders as you head home. A responsible adult, 18 years or older, must be with you until tomorrow morning. Rest quietly today. You may resume your normal diet as tolerated or as directed by your surgeon. Do not drive or operate any heavy machinery until tomorrow morning or as instructed. Do not make any legal or important decisions for the next 24 hours. Do not drink alcoholic beverages or take sleeping pills for 24 hours unless otherwise directed. If you have any questions or concerns regarding your anesthesia experience, please call our office at . Get Well Soon! [facility] +++++++++++++++++++++++++++++++++++++++++++ [facility] Discharge Instructions - Following Endoscopy A responsible adult, 18 years or older must be in attendance until the next A.M. Rest quietly today. May resume usual diet. Do not drive or operate any machinery until the next A.M., or as instructed. No alcoholic beverages for 24 hours. Do not make any legal or important decisions for the next 24 hours. Call the physician???s office for a follow-up visit or as needed. Patient discharged to the care of mother. ADDITIONAL INSTRUCTIONS: Call Dr. Reyna at [phone] if the following occurs: EGD: Abdominal pains, cramps, swelling, chest pains, difficulty in swallowing, chills, coughing blood, severe sore throat, or body temp. over 101 degrees. documented in this encounter Medications at Time of Discharge loratadine (CLARITIN) 10 mg Oral TabletIndications :allergic rhinitis Take 1 Tablet by mouth as needed for Other. Indications: inflammation of the nose due to an allergy 30 Tablet 1 09/28/2025 metoclopramide HCl (REGLAN) 5 mg Oral TabletIndications :Epigastric abdominal pain,Nausea and vomiting, unspecified vomiting type Take 1 Tablet by mouth 4 times daily. 120 Tablet 09/13/2025 ondansetron (ZOFRAN-ODT) 4 mg Oral Tablet, Rapid Dissolve Dissolve 1 Tablet by mouth every 6 hours as needed for Nausea for up to 30 days. 12 Tablet 2025 documented as of this encounter Ordered Prescriptions Prescription Sig Dispense Quantity Refills Last Filled Start Date End Date loratadine (CLARITIN) 10 mg Oral TabletIndications :allergic rhinitis Take 1 Tablet by mouth as needed for Other. Indications: inflammation of the nose due to an allergy 30 Tablet 1 09/28/2025 documented in this encounter Discharge Disposition Disposition Code Departure Means Destination Home or Self Care documented in this encounter H&P Notes * Kriss Reyna MD - 09/28/2025 11:15 AM EST Images from the original note were not included. Procedure: EGD Allergies:Allergies[1] Previous anesthesia reaction: No Pre-Procedure Assessment: Risks, benefits, potential complications and alternatives discussed with the patients legally authorized financial service representative. The patient's pre-procedure physical assessment indicates that the patient is suitable candidate for and agrees to the planned sedation and procedure. ASA: 2 Mallampati: 2 NPO as ordered for procedure: Yes Cardiovascular and Vital signs Stable: yes Comment: Adequate/Patient Oral Airway yes Comment: The Patient was examined as below GEN:NAD NEURO:A&Ox3 SKIN:no obvious rash or lesions on exposed surfaces HEENT:anicteric NECK:no lad CV:RRR PULM:CTA GI:soft, NTND :NTND EXT:no C/C/E H&P Update History and Physical within 30 days and on chart? yes History and Physical reviewed? yes Changes? no List: Physician Signature: Kriss Reyna MD Date:09/28/2025 Time:10:41 AM [1] Allergies Allergen Reactions Bailey Hives Coconut Hives Budesonide Other (See Comments) But NOT other ICS Motrin [Ibuprofen] Hives Source Note - Kriss Reyna MD - 09/28/2025 11:15 AM EST GI pre procedure H&P Lennie Magaña is a 35 y.o. female here for evaluation of epigastric pain and nausea. Prescriptions Prior to Admission[1] Medication: lactated ringers Allergies: Allergies[2] Immunizations: Immunization History Administered Date(s) Administered Moderna SARS-CoV-2 Booster Vaccine 18+ Yrs (Light Blue Border) 11/06/2021 Moderna SARS-CoV-2 Vaccine 12+ Yrs (Light blue border) 02/15/2021, 03/15/2021 Pfizer SARS-CoV-2 Vaccine Xander-sucrose 12+ Yrs 08/21/2023, 09/03/2024, 09/10/2025 Family history, past medical history, and social history are reviewed as below. Past Medical History: Past Medical History[3] Past Surgical History: Surgical History[4] Family History: Family History[5] Social History: Social History[6] ROS Constitutional: Denies fever,sweats, chills or weight loss Eyes: Denies change in visual acuity HENT: Denies hearing loss or dizziness Respiratory: Denies cough or shortness of breath Cardiovascular: Denies edema or chest pain : Denies dysuria, hematuria, urgency or frequency Musculoskeletal: Denies back pain or joint pain Integument: Denies rash Neurologic: Denies headache, previous stroke, TIA, confusion Endocrine: Denies polyuria or polydipsia Lymphatic: Denies swollen glands Psychiatric: Denies depression or anxiety Hematologic: Denies previous anemia or easy bruising All other review of systems negative, except for those noted. PHYSICAL EXAM: VITAL SIGNS: BP 124/78 (BP Location: Right arm, Patient Position: Semi Fowlers) Pulse 75 Temp 97 ??F (36.1 ??C) (Forehead) Resp 16 Ht 5' 3 (1.6 m) Wt 214 lb 11.2 oz (97.4 kg) LMP 08/29/2025 (Exact Date) SpO2 100% BMI 38.03 kg/m?? @IODETAILS@ Constitutional: Well developed. Well nourished. Non-toxic appearance. No acute distress. HENT: Normocephalic. Atraumatic. Bilateral external ears normal, Oropharynx moist. No oral exudate.Nose normal. Eyes: No Scleral icterus Neck: No Cervical or supraclavicular nodes Lymphatic: No lymphadenopathy noted. Cardiovascular: Normal S1 and S2, Normal rhythm, No murmurs, No rubs, No gallops. Thorax & Lungs: Normal breath sounds, No respiratory distress, No wheezing, No chest tenderness. Abdomen: Soft, non-tender. Bowel sounds are normoactive without bruits. No guarding, spasm or rebound. No hepatomegaly. No splenomegaly. No ascites Rectal: Deferred. Skin: Warm, dry. No erythema. No rash. Extremities: Intact distal pulses, No deformity. No edema. Neurologic: Alert & oriented x 3, No Asterixis RESULTS Lab Results Component Value Date ALT 19 2025 AST 10 2025 ALKPHOS 76 2025 PROT 6.8 2025 LIPASE 22 2025 Lab Results Component Value Date WBC 8.5 2025 HGB 14.8 2025 HCT 43.7 2025 MCV 88.5 2025 PLT 187 2025 Lab Results Component Value Date CREATININE 0.76 2025 BUN 13 2025 NA 138 2025 K 4.1 2025 CL 103 2025 CO2 22 2025 IMAGES No results found. ASSESSMENT 1. Epigastric pain PLAN 1. EGD next 1. The patient indicates understanding of these issues and agrees with the plan. 2. I reviewed the patient's medical information and medical history. 3. I have reviewed the past medical, family, and social history sections including the medications and allergies listed in the above medical record. This note was generated using voice recognition technology. It has been reviewed by the undersigned, however, may still contain unintended errors. Electronically signed by: Kriss Reyna MD, 09/28/2025 10:40 AM [1] (Not in a hospital admission) [2] Allergies Allergen Reactions Bailey Hives Coconut Hives Budesonide Other (See Comments) But NOT other ICS Motrin [Ibuprofen] Hives [3] Past Medical History: Diagnosis Date Asthma Endometriosis GERD (gastroesophageal reflux disease) [4] Past Surgical History: Procedure Laterality Date CHOLECYSTECTOMY, LAPAROSCOPIC N/A 09/25/2020 LAPAROSCOPIC CHOLECYSTECTOMY ; Surgeon: Tucker Lynn DO; Location: [facility] OR; Service: General DENTAL SURGERY wisdom teeth removed TONSILLECTOMY [5] Family History Problem Relation Age of Onset Cancer Mother 30 - 39 Diabetes Mother 50 - 59 Stroke Mother 50 - 59 Heart Disease Mother 40 - 49 Cancer Father 40 - 49 Anesth Problems Neg Hx [6] Social History Tobacco Use Smoking status: Never Smokeless tobacco: Never Vaping Use Vaping status: Never Used Substance Use Topics Alcohol use: Yes Alcohol/week: 0.6 oz Types: 1 Standard drinks or equivalent per week Comment: Only drink occasionally Drug use: Never * Kriss Reyna MD - 09/28/2025 11:15 AM EST GI pre procedure H&P Lennie Magaña is a 35 y.o. female here for evaluation of epigastric pain and nausea. Prescriptions Prior to Admission[1] Medication: lactated ringers Allergies: Allergies[2] Immunizations: Immunization History Administered Date(s) Administered Moderna SARS-CoV-2 Booster Vaccine 18+ Yrs (Light Blue Border) 11/06/2021 Moderna SARS-CoV-2 Vaccine 12+ Yrs (Light blue border) 02/15/2021, 03/15/2021 Pfizer SARS-CoV-2 Vaccine Xander-sucrose 12+ Yrs 08/21/2023, 09/03/2024, 09/10/2025 Family history, past medical history, and social history are reviewed as below. Past Medical History: Past Medical History[3] Past Surgical History: Surgical History[4] Family History: Family History[5] Social History: Social History[6] ROS Constitutional: Denies fever,sweats, chills or weight loss Eyes: Denies change in visual acuity HENT: Denies hearing loss or dizziness Respiratory: Denies cough or shortness of breath Cardiovascular: Denies edema or chest pain : Denies dysuria, hematuria, urgency or frequency Musculoskeletal: Denies back pain or joint pain Integument: Denies rash Neurologic: Denies headache, previous stroke, TIA, confusion Endocrine: Denies polyuria or polydipsia Lymphatic: Denies swollen glands Psychiatric: Denies depression or anxiety Hematologic: Denies previous anemia or easy bruising All other review of systems negative, except for those noted. PHYSICAL EXAM: VITAL SIGNS: BP 124/78 (BP Location: Right arm, Patient Position: Semi Fowlers) Pulse 75 Temp 97 ??F (36.1 ??C) (Forehead) Resp 16 Ht 5' 3 (1.6 m) Wt 214 lb 11.2 oz (97.4 kg) LMP 08/29/2025 (Exact Date) SpO2 100% BMI 38.03 kg/m?? @IODETAILS@ Constitutional: Well developed. Well nourished. Non-toxic appearance. No acute distress. HENT: Normocephalic. Atraumatic. Bilateral external ears normal, Oropharynx moist. No oral exudate.Nose normal. Eyes: No Scleral icterus Neck: No Cervical or supraclavicular nodes Lymphatic: No lymphadenopathy noted. Cardiovascular: Normal S1 and S2, Normal rhythm, No murmurs, No rubs, No gallops. Thorax & Lungs: Normal breath sounds, No respiratory distress, No wheezing, No chest tenderness. Abdomen: Soft, non-tender. Bowel sounds are normoactive without bruits. No guarding, spasm or rebound. No hepatomegaly. No splenomegaly. No ascites Rectal: Deferred. Skin: Warm, dry. No erythema. No rash. Extremities: Intact distal pulses, No deformity. No edema. Neurologic: Alert & oriented x 3, No Asterixis RESULTS Lab Results Component Value Date ALT 19 2025 AST 10 2025 ALKPHOS 76 2025 PROT 6.8 2025 LIPASE 22 2025 Lab Results Component Value Date WBC 8.5 2025 HGB 14.8 2025 HCT 43.7 2025 MCV 88.5 2025 PLT 187 2025 Lab Results Component Value Date CREATININE 0.76 2025 BUN 13 2025 NA 138 2025 K 4.1 2025 CL 103 2025 CO2 22 2025 IMAGES No results found. ASSESSMENT 1. Epigastric pain PLAN 1. EGD next 1. The patient indicates understanding of these issues and agrees with the plan. 2. I reviewed the patient's medical information and medical history. 3. I have reviewed the past medical, family, and social history sections including the medications and allergies listed in the above medical record. This note was generated using voice recognition technology. It has been reviewed by the undersigned, however, may still contain unintended errors. Electronically signed by: Kriss Reyna MD, 09/28/2025 10:40 AM [1] (Not in a hospital admission) [2] Allergies Allergen Reactions Bailey Hives Coconut Hives Budesonide Other (See Comments) But NOT other ICS Motrin [Ibuprofen] Hives [3] Past Medical History: Diagnosis Date Asthma Endometriosis GERD (gastroesophageal reflux disease) [4] Past Surgical History: Procedure Laterality Date CHOLECYSTECTOMY, LAPAROSCOPIC N/A 09/25/2020 LAPAROSCOPIC CHOLECYSTECTOMY ; Surgeon: Tucker Lynn DO; Location: [facility] OR; Service: General DENTAL SURGERY wisdom teeth removed TONSILLECTOMY [5] Family History Problem Relation Age of Onset Cancer Mother 30 - 39 Diabetes Mother 50 - 59 Stroke Mother 50 - 59 Heart Disease Mother 40 - 49 Cancer Father 40 - 49 Anesth Problems Neg Hx [6] Social History Tobacco Use Smoking status: Never Smokeless tobacco: Never Vaping Use Vaping status: Never Used Substance Use Topics Alcohol use: Yes Alcohol/week: 0.6 oz Types: 1 Standard drinks or equivalent per week Comment: Only drink occasionally Drug use: Never documented in this encounter Nursing Notes * Asia Matos LPN - 09/28/2025 11:15 AM EST Images from the original note were not included. PREPARING FOR YOUR ENDOSCOPY PROCEDURE Date of Surgery: 09/28/25 Arrival Time: 1015 am Medications Take the following medications on the morning of surgery: pepcid, zoloft Medications to hold prior to surgery; Verify with your doctor for possibly discontinuing the following medications: blood thinners, aspirin, or anti-inflammatories. Stop taking all supplements 7 days prior to your surgery. Diabetic Instructions Please follow the instructions given by your physician for diabetic medication. If you have not received instructions, contact the office of the physician completing your procedure. Food, Drinks, Tobacco Do not eat or drink after midnight. This includes gum, mints, candy, chewing tobacco, and dip. If you are having a procedure which includes prep, please follow office instructions. No exceptions or substitutions to these restrictions. Do not smoke, vape, or use any type of tobacco or marijuana products within 24 hours prior to surgery. Smoking will also slow your rate of healing. It is advised that you do not smoke during the healing process. No alcohol 24 hours prior to surgery. Gym Manager It is important to have a Gym Manager, someone who is 18 years or older, to accompany you and remain in the facility for the duration of your surgery. This person should be available for the Endoscopy Team to communicate with before, during and after your surgery. Because you are receiving anesthesia, someone is needed to drive you home and remain with you for at least 24 hours after surgery to make sure you are safe during that time. A parent must accompany a child under 18 years of age scheduled for the procedure and remain at thehospital until the child is discharged. We also recommend that no children be present on the day of surgery. If you have a concern, please reach out to our department [phone]. Hygiene Streeter your teeth and gargle the morning of surgery. Shower the morning of surgery or the night before. Do not wear makeup (including eye makeup) lotion, powder, deodorant, perfume, or cologne. Personal Items Wear clean, simple, loose-fitting clothing (no jeans) and sturdy shoes (no flip flops, slides or crocs) to the hospital. Do not bring unnecessary valuables with you. It is policy that [facility] does not assume responsibility for lost, stolen or broken personal items that are brought in. Exceptions may be consideredfor items which are considered necessary for your healthcare. These items will be formally documented. Remove all jewelry prior to your procedure to prevent injury. We will not tape wedding rings/bands. Remove all body piercings prior to arrival. Plastic inserts are acceptable. Glasses and contacts will need to be removed prior to surgery. Please bring a case for them. Bring with You Bring a copy of your Living Will and/or Durable Power of Snack Stewardess for Healthcare. Vaccines It is recommended that you do not receive vaccines 7 days before or after surgery. Notify the Doctor Notify your doctor if you develop any illness (fever, cold, cough, sore throat, nausea, vomiting, skin rashes etc.) between now and surgery time Notify your doctor and Pre-admission testing ([phone]) if you have any changes in your health conditions or if any new medications are ordered between now and surgery.. Questions or Concerns? If you have any questions or concerns, feel free to call the Pre-Admission testing department at [phone]. We want to make sure you feel safe and have an excellent experience while you are here. If you need to cancel/reschedule, please reach out to your physician's office. Do not reply to this message through [facility] as it may not be answered promptly. Endoscopy - [place] at [phone]; [place]: Entrance 1D, on the main floor and enter the sliding doors on the right - [address] [place] [address], [place] [address]. DOORS OPEN AT 6 AM MON-SAT ANESTHESIA - COMMON SIDE EFFECTS (if present, these should resolve within 24 hours) TIREDNESS SHIVERING DIZZINESS DRY MOUTH MILD NAUSEA/VOMITING SORE THROAT OR HOARSENESS MILD PAIN OR DISCOMFORT IS NORMAL CALL THE SURGEON DAY OR NIGHT You have nausea or vomiting that doesn???t go away by the next morning. You experience severe painnot relieved by suggested medications. Thank you for letting us care for you. documented in this encounter Plan of Treatment Upcoming Encounters Date Type Department Care Team (Late st Contact Info) Description 11/23/2025 1:30 PM EST Office Visit [facility] [address] [facility] [address] ENTRANCE, [address] [place] [address] Kriss Reyna MD [address] [place] [address] documented as of this encounter Procedures Procedure Name Priority Date/Time Associated Diagnosis Comments ESOPHAGOGASTRODUODENOSCOPY (EGD) Routine 09/28/2025 11:30 AM EST Epigastric abdominal pain PATHOLOGY TISSUE REQUEST Routine 025 11:24 AM EST Preop testing Epigastric abdominal pain POCT URINE Routine 09/28/2025 10:35 AM EST Preop testing documented in this encounter Results * ESOPHAGOGASTRODUODENOSCOPY (EGD) (09/28/2025 11:30 AM EST) Anatomical Region Laterality Modality Endoscopy Narrative 09/28/2025 11:32 AM EST Table formatting from the original result was not included. Findings Multiple polyps measuring smaller than 5 mm in the stomach; performed cold forceps biopsy; placed MRI compatible clips; hemostasis achieved. Erythematous mucosa in the antrum; performed cold forceps biopsy. The esophagus and duodenum appeared normal. Recommendation Await pathology results Follow up with me in clinic Pre-Procedure Diagnosis / Indication Epigastric abdominal pain Post-Procedure Diagnosis None Staff Staff Role Joey Metz CRNA ELECTRONIC WARFARE TECHNICIAN Jenna Child RN Procurement Services Manager Meggan Garcia RN Endoscopy Nurse Nadja Woods MD Anesthesiologist Kriss Reyna MD Performing Provider Medications See Anesthesia Record. Preprocedure A history and physical has been performed, and patient medication allergies have been reviewed. The patient's tolerance of previous anesthesia has been reviewed. The risks and benefits of the procedure and the sedation options and risks were discussed with the patient. All questions were answered and informed consent obtained. ASA 2 - Patient with mild systemic disease Details of the Procedure The patient underwent monitored anesthesia care, which was administered by an anesthesia professional. The patient's blood pressure, heart rate, level of consciousness, oxygen saturation, respirations, ECG and ETCO2 were monitored throughout the procedure. The scope was introduced into the mouth through a bite block and advanced to the second part of the duodenum. Retroflexion was performed in the cardia. The patient experienced no blood loss. The procedure was not difficult. The patient tolerated the procedure well. There were no apparent adverse events. Patient provided education and educated on specific discharge instructions. Patient educated on medications given during the procedure and new medications for discharge. Patient verbalizes understanding of discharge education. Patient stable and awaiting transport for discharge. Events Procedure Events Event Event Time ENDO SCOPE IN TIME 09/28/2025 11:21 AM ENDO SCOPE OUT TIME 09/28/2025 11:27 AM Specimens ID Type Source Tests Collected by Time 1 : Gastric Biopsies Tissue Gastric PATHOLOGY TISSUE REQUEST Kriss Reyna MD 09/28/20251123 2 : Gastric Polyp via Forceps Tissue Gastric PATHOLOGY TISSUE REQUEST Kriss Reyna MD 09/28/2025 1124 Anesthesia Event Time In Patient In - Proc. Room 11:05 AM Kriss Reyna MD ENDOSCOPY PROCEDURE ORDERABLE S Final Result * PATHOLOGY TISSUE REQUEST (09/28/2025 11:24 AM EST) CASE REPORT Surgical Pathology Case: [id number] Authorizing Provider: Kriss Reyna MD Collected: 09/28/20251123 Ordering Location: [facility] ENDOSCOPY Received: 09/28/2025 1400 Pathologist: Shasta Paiz MD Specimens: A) - Gastric, Gastric Biopsies B) - Gastric, Gastric Polyp via Forceps 09/29/2025 4:40 PM EST [facility] FINAL DIAGNOSIS A. Gastric, biopsies: Gastric fundic mucosa with no significant diagnostic abnormalities. Helicobacter microorganisms are not identified. B. Gastric, polyp, biopsy via forceps: Fragments of fundic gland polyp. 09/29/2025 4:40 PM EST [facility] at 1640 EST GROSS DESCRIPTION A. Received in formalin, in a container labeled with the patient's name, hospital number, and Gastric Biopsies , are 2 encarnacion soft tissue fragments, 0.3 to 0.5 cm in greatest dimension. The fragments are entirely [facility]. [facility]28[facility]25 B. Received in formalin, in a container labeled with the patient's name, hospital number, and Gastric Polyp via Forceps , are 2 encarnacion soft tissue fragments, 0.3 to 0.4 cm in greatest dimension. The fragments are entirely submitted in B1. [facility] 09/28/2025 09/29/2025 4:40 PM EST [facility] MICROSCOPIC DESCRIPTION The microscopic examination may have been rendered in whole, or in part, by analyzing high-resolution digital images (whole slide images) on the [employer] Digital Pathology platform validated at [facility]. 09/29/2025 4:40 PM EST [facility] EMBEDDED IMAGES 09/29/2025 4:40 PM EST [facility] Tissue STOMACH STRUCTURE / Unknown 09/28/2025 11:24 AM EST 09/28/2025 2:00 PM EST Tissue specimen (specimen) STOMACH STRUCTURE / Unknown 09/28/2025 11:24 AM EST 09/28/2025 2:00 PM EST us Kriss Reyna MD PATHOLOGY ORDERABLES Final Re sult [facility] [address] [place] [address] [address] * POCT URINE (09/28/2025 10:35 AM EST) Preg Test, Ur Negative [facility] Lot Number [id number] [facility] Expiration Date 10/08/2026 [facility] SeriAl # [facility] Control Line Yes YES/NO [facility] 09/28/2025 10:3 5 AM EST Smiley Lopez [employer] POINT OF CARE TEST ORDERABLES Final Result [facility] [address] [phone] documented in this encounter Visit Diagnoses Diagnosis Preop testing- Primary Preoperative examination, unspecified Epigastric abdominal pain Abdominal pain, epigastric documented in this encounter Administered Medications Inactive Administered Medications - up to 1 most recent administrations Medication Order MAR Action Action Date Dose Rate Site lactated ringers infusion Intravenous, at 50 mL/hr, PREPROCEDURE CONTINUOUS, Starting on Meka 09/28/25 at 0645, Until Thu09/29/25 at 0411, To be given in SDS/Pre-op Holding Area, Pre-op (Holding/SDS Meds) New Bag 09/28/2025 10:43 AM EST 50 mL/hr documented in this encounter Discontinued Medications Medication Sig Discontinue Reason Start Date End Da te metoclopramide HCl (REGLAN) 5 mg Oral Tablet Take 1 Tablet by mouth 4 times daily. DELETE-Duplicate 09/13/2025 09/22/2025 metoclopramide HCl (REGLAN) 10 mg Oral Tablet Take 1 Tablet by mouth every 8 hours as needed for Nausea for up to 30 days. DELETE-Duplicate 09/13/2025 09/22/2025 famotidine (PEPCID) 20 mg Oral TabletIndications:Epig astric abdominal pain Take 1 Tablet by mouth daily. DELETE-Duplicate 09/13/2025 09/22/2025 topiramate (TOPAMAX) 25 mg Oral Tablet Take by mouth 2 times daily. DELETE-Therapy completed 09/28/2025 metFORMIN XR (GLUCOPHAGE-XR) 750 mg Oral Tablet Sustained Release 24 hr Take 750 mg by mouth daily. DELETE-Therapy completed 09/28/2025 norgestimate-ethinyl estradiol (ORTHO TRI-CYCLEN;TRI-SPRINTE C) 0.18/0.215/0.25 mg-35 mcg (28) Oral Tablet Take 1 Tab by mouth daily. DELETE-Therapy completed 09/28/2025 montelukast (SINGULAIR) 10 mg Oral Tablet Take 10 mg by mouth every evening. DELETE-Therapy completed 09/28/2025 sertraline (ZOLOFT) 50 mg Oral Tablet Take 75 mg by mouth daily. DELETE-Therapy completed 09/28/2025 loratadine (CLARITIN) 10 mg Oral Tablet Take 10 mg by mouth daily. 09/28/2025 documented as of this encounter Orders Medications Ordered That Aj ht Not Have Been Administered Count Last Ordered Date First Ordered Date acetaminophen (TYLENOL) tablet 1,000 mg 1 1 11/28/2024 droPERidol (INAPSINE) injection 0.625 mg 1 09/28/2025 fentaNYL (SUBLIMAZE) injection 25 mcg 1 HYDROmorphone (DILAUDID) injection 0.25 mg 1 09/28/2025 ondansetron (ZOFRAN) injection 4 mg 1 09/28 ondansetron (ZOFRAN-ODT) dis integrating tablet 8 mg 1 09/28/2025 oxyCODONE (ROXICODONE) immed iate release tablet 5 mg 1 09/28/2025 lactated ringers infusion 1 09/27/2025 Discharge Count Last Ordered Date First Orde red Date DISCHARGE PATIENT 1 09/28/2025 documented in this encounter
--- OUTSIDE RECORDS SUMMARY | 2025-09-28 11:08 | XMS_ITS | Encounter Summary ---
Author Organization [place] [address] Care Team Providers Care Stock Clipper Name Role Phone Unavailable Primary Care Provider Unavailabl e Encounter Details Date Type Department Care Team (Late st Contact Info) Description 09/28/2025 11:08 AM EST Anesthesia Event [facility] [address] [place] [address] Nadja Woods MD [address] [place] [address] [address] [place] [address] Smiley Lopez APRN [address] [place] [id number] Anesthesia Record Procedure Summary Procedure Name Responsible Anesthesiologist Anesthesia Start Time Anesthesia Stop Time ESOPHAGOGASTRODUODENOSCOPY (EGD) Nadja Woods MD 1108 09/28/25 1129 Events Date Time Event Comment 09/28/2025 1041 1108 AN Equip Check 1108 An Start 1109 An Start Data 1109 Start Supplemental O2 Disabl es direct capture of O2 [ANES AGENT O2 [[id number]] and Air flow [ANES AGENT AIR [[id number]] variables into chart. 1109 Immediate Pre Anesthetic Ass es 1110 Anesthesia Ready 1120 Time out 1120 Incision 1127 an stop data 1129 An Stop 1129 Handoff I completed my SBAR handoff to the receiving nurse which has included the followin. Identification of the patient, family, or patient surrogate 2. Identification of the responsible practitioner 3. Pertinent medical history 4. Surgical procedure and reason for procedure 5. Intraoperative anesthetic management 6. All current lines, drains and respiratory support. 7. Outstanding follow up orders (X-rays, consults etc) 8. Expectations/Plans for the early post-procedure period 9. Opportunity for questions and acknowledgement of understanding from the receiving PACU/ICU store team member Meds Name Total propofol (DIPRIVAN) injection 100 mg propofol (DIPRIVAN) infusion 10 mg/mL 16 5,580 mcg fentaNYL 50 MCG/ML INJ 50 mcg lidocaine injection 1% 80 mg * Agents Name N2O * Blood No blood administrations on file. Lines, Drains, and Airways Type Details Placement Removal Peripheral IV 09/28/25; 1043; 22; Right; Forearm; Arminda RN; 1; 09/28/25; 1154; Therapy completed; Catheter intact, Dressing applied, No Complications 09/28/25 1043 by Staff, Arminda Espana RN 09/28/25 1154 by Juvenal West RN documented in this encounter Social History Tobacco Use Types Packs/Day Years Used Date Smoking Tobacco: Never Smokeless Tobacco: Never Alcohol Use Standard Drinks/Week Comments Yes 1 [...] on file documented as of this encounter OR Notes * Anesthesia Postprocedure Evaluation - Nadja Woods MD - 09/28/2025 11:37 AM EST Post-Anesthesia Evaluation Note Patient Name: Lennie Magaña Patient Date: September 28, 2025 Post-Anesthesia Evaluation Patient Location: ENDO Post op vitals: stable Nausea controlled: yes Level of consciousness: awake, alert and oriented Post anesthesia pain: adequate analgesia Long acting local anesthetic: n/a Airway patency: patent Respiratory status: spontaneous ventilation and room air Cardiovascular status: stable Hydration status: euvolemic Perioperative complications: NONE Vitals Value Taken Time BP 117/69 09/28/25 11:33 Resp 17 09/28/25 11:33 SpO2 98 % 09/28/25 11:33 Temp 09/28/25 11:37 Pulse 74 09/28/25 11:33 * Anesthesia Preprocedure Evaluation - Nadja Woods MD - 09/28/2025 10:31 AM EST Pre-Anesthesia Evaluation Note Patient Name: Lennie Magñaa Sex: female Patient : 1990 Age: 35 y.o. Patient Date: September 28, 2025 ESOPHAGOGASTRODUODENOSCOPY (EGD) Anesthesia Evaluation Previous anesthesia. 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 Anesthesia Plan ASA 2 Last solid intake: The patient has not eaten within the last 8 hours. Last clear liquid intake: The patient has not had clear liquids within the last 2 hours. Anesthesia Plan: MAC Induction: intravenous Monitors: STD Informed consent Anesthetic plan and risks discussed with: patient. Chart Reviewed and patient examined documented in this encounter Miscellaneous Notes * PAT Pre Evaluation for Anesthesia - Smiley Lopez APRN - 09/27/2025 10:44 AM EST Pre-Anesthesia Evaluation Note Patient Name: Lennie Magaña Sex: female Patient : 1990 Age: 35 y.o. Patient Date: September 27, 2025 ESOPHAGOGASTRODUODENOSCOPY (EGD) Anesthesia Evaluation Previous anesthesia. 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 Anesthesia Plan Anesthesia Plan: MAC Chart Reviewed documented in this encounter Plan of Treatment Upcoming Encounters Date Type Department Care Team (Late st Contact Info) Description 11/23/2025 1:30 PM EST Office Visit [facility] [address] [facility] [address] [place] [address] Kriss Reyna MD [address] [place] [address] documented as of this encounter Visit Diagnoses Not on filedocumented in this encounter Administered Medications Inactive Administered Medications - up to 1 most recent administrations Medication Order MAR Action Action Date Dose Rate Site fentaNYL (SUBLIMAZE) injection Intravenous, PRN (Anesthesia), Starting on Meka 09/28/25 at 1109, Until Meka 09/28/25 at 1129, Anesthesia Intra-op Given 09/28/2025 11:09 AM EST 50 mcg lidocaine 1% 10 mg/mL (1 %) injection Intravenous, PRN (Anesthesia), Starting on Meka 09/28/25 at 1109, Until Meka 09/28/25 at 1129, Anesthesia Intra-op Given 09/28/2025 11:09 AM EST 80 mg propofol (DIPRIVAN) infusion 10 mg/mL Intravenous, CONTINUOUS PRN, Starting on Meka 09/28/25 at 1109, Until Meka 09/28/25 at 1129, Anesthesia Intra-op New Bag 09/28/2025 11:09 AM EST 100 mcg/kg/min 58.44 mL/hr propofoL (DIPRIVAN) injection Intravenous, PRN (Anesthesia), Starting on Meka 09/28/25 at 1109, Until Meka 09/28/25 at 1129, Anesthesia Intra-op Given 09/28/2025 11:09 AM EST 100 mg documented in this encounter
[2025-10-29] VITALS (8 sets, daily range): BP systolic 115–128; BP diastolic 68–80; PULSE 96–119; RESP 18–20; TEMP 36.5–36.7; O2SAT 96–100; BMI 38.4
--- NOTE | 2025-10-29 12:27 | ED_ITS ---
<Statement entered by Bret Galicia MD - 10/29/25 14:55> I was consulted by the AKBAR, and we discussed the complexity of the problems being addressed. I approved the treatment and management plan for this patient's care in the Emergency Department, thus performing a substantive portion of the medical decision making. Bret Galicia MD Discharge Plan Disposition Patient Disposition: Home, Self-Care Condition: Good Prescriptions Prescriptions: New magnesium oxide 200 mg magnesium tablet 200 mg PO DAILY Qty: 7 0RF dicyclomine 20 mg tablet 20 mg PO QID PRN (Reason: abdominal pain) Qty: 14 0RF Referrals Follow up/Referrals: Provider,Referral, MD [Primary Care Provider, Medical] - See instructions Activity Restrictions/Add. Instructions Additional Instructions/Restrictions: Please return to the emergency department with any worsening signs or symptoms. Please follow-up with your GI doctor and family doctor in the upcoming days/weeks. Please use your antinausea medicine, anticramping medicine and take your magnesium supplement as prescribed. Clinical Impressions Clinical Impression: Abdominal pain, Nausea vomiting and diarrhea Instructions Patient Instructions: DI for Acute Abdominal Pain, DI for Vomiting in Adults Print Language Print Language: Mongolian Discharge ED Provider: Bret Galicia General Adult HPI General Chief complaint: Abdominal Pain Stated complaint: vomiting, diarrhea, stomach pain Time Seen by Provider: 10/29/25 12:24 Mode of Arrival: Ambulatory Source of Information: Patient and Medical Record History of Present Illness HPI narrative: 35-year-old female presents to the emergency department with diffuse abdominal pain nausea vomiting poor p.o. intake and diarrhea that started approximately 3:30 AM , this morning, patient states she has had waxing and waning episodes of abdominal pain nausea vomiting diarrhea, for the last 3 months, she has undergone what sounds like extensive workup by gastroenterology in [facility] to include endoscopy colonoscopy, and what sound second ERCP, all of which been negative, she has Reglan, Zofran and Pepcid at home to utilize for symptomatology, unfortunately patient did not bring any of this medicine with me ., Attempted to take a sublingual Zofran that was given to her by her sister prior to her arrival, but could not keep it down , this prompted emergency department visit. Patient admits to subjective fever and chills, denies any chest pain shortness of breath, denies any hematuria melena hematochezia hematemesis or hemoptysis, denies any urinary symptomatology, denies any vaginal symptomatology, denies any alcohol tobacco or drug use, denies any other real relevant past medical history takes no other medications at home. Initial triage vitals are notable for Please note that above description of symptoms, in this electronic medical record under categorization of recalled from ER triage doctor by RN are reflective of an initial nursing assessment, however, is not reflective of my full history and physical exam that was personally taken and clarified. Consequentially, this preceding description of symptoms, which may include the patient's categorized chief complaint in the EMR, do not reflect my personal clinical impression, and the ultimate description of history of present illness and patient stated complaints should be deferred to this section of the note. Unless stated otherwise or congruent with this section of the note, additional signs, symptoms, or incongruence should be interpreted as inaccurate with my clinical impression. Onset (ago): hour(s) Related Data Previous Rx's ?Medication ?Instructions ?Recorded dicyclomine 20 mg tablet 20 mg PO QID PRN abdominal p ain 10/29/25 #14 tabs magnesium oxide 200 mg PO DAILY #7 tabs 10/10 12/03 Allergies Allergy/AdvReac Type Severity Reaction Status Date / Time budesonide (From Pulmicort) Allergy Anaphylaxis Verified 10/29/25 12:35 nut - unspecified Allergy Anaphylaxis Verified 10/29/25 12:35 PFSH PFS Disclaimer: The information contained in this section may have been updated after the patient was seen, as this information can be updated by other users. Social History Smoking Status: Never smoker alcohol intake: never current occupational status: other Travel in the last 8 weeks?: None ROS Obtained: Yes All systems reviewed & no additional complaints except as documented Physical Exam General General appearance: alert and in no apparent distress Head Head exam: atraumatic and normocephalic Eye Eye exam: Present PERRL and EOMI ENT ENT exam: Present mucous membranes moist Neck Neck exam: Present normal inspection Chest Chest inspection: Present normal inspection and symmetric chest wall rise Respiratory Respiratory exam: Present normal lung sounds bilaterally; Absent respiratory distress, wheezes or stridor Cardiovascular Cardiovascular exam: Present regular rate and normal rhythm Abdominal Exam Abdominal exam: Present soft and tenderness; Absent distention, guarding, rebound or rigidity Abdominal tenderness: Present diffuse and mild Comment: Minimal to mild diffuse abdominal tenderness palpation Extremities Exam Extremities exam: Present normal inspection Neurological Exam Neurological exam: Present alert and oriented X3 Psychiatric Psychiatric exam: Present normal affect Skin Skin exam: Present warm and dry Medical Decision Making Medical Records Medical records reviewed: Yes I reviewed the patient's medical records. Screening: Per USPSTF and CDC recommendations, given the prevalence of disease in our region, it is our hospital?s policy to screen for HIV and viral Hepatitis for all patients aged 18 and over and those with ongoing risk factors. Kevin Inquiry Pt receiving controlled substance: No Kevin was queried for this patient: No Vital Signs: 10/29/25 12:26 10/29/25 12:30 10/29/25 13:00 Temperature 97.7 F Temperature Source Oral Pulse Rate 109 H 100 H Pulse Rate [Right] 96 H Respiratory Rate 20 Blood Pressure 116/79 128/80 Blood Pressure [Right Arm] 116/79 Blood Pressure Mean [Right Arm] 91 02 Sat by Pulse Oximetry 100 100 96 Oxygen Delivery Method Room Air Room Air 10/29/25 13:30 10/29/25 14:00 10/29/25 14:30 Temperature Temperature Source Pulse Rate 103 H 110 H 114 H Pulse Rate [Right] Respiratory Rate Blood Pressure 119/69 115/68 127/73 Blood Pressure [Right Arm] Blood Pressure Mean [Right Arm] 02 Sat by Pulse Oximetry 96 97 98 Oxygen Delivery Method Room Air Lab Data Lab results reviewed: Yes I reviewed the patient's lab results. Lab Results 10/29/25 12:32: WBC 11.8 H, RBC 5.22, Hgb 15.5, Hct 47.1 H, MCV 90.2, MCH 29.7, MCHC 32.9, RDW 12.5, Plt Count 172, MPV 10.3, Neut % (Auto) 90.2 H, Lymph % (Auto) 3.9 L, [place] % (Auto) 5.1, Eos % (Auto) 0.3, Baso % (Auto) 0.2, Neut # (Auto) 10.7 H, Lymph # (Auto) 0.5 L, [place] # (Auto) 0.6, Eos # (Auto) 0.0, Baso # (Auto) 0.0, Total Counted 100, Neutrophils % (Manual) 89 H, Lymphocytes % (Manual) 4 L, Monocytes % (Manual) 7, Platelet Estimate Normal, RBC Morphology Normal, Sodium 138, Potassium 3.9, Chloride 103, Carbon Dioxide 24, Anion Gap 14.9, BUN 21 H, Creatinine 0.80, Estimated Creat Clear 155, Estimated GFR 83, Est GFR ( Amer) 100, Glucose 127 H, Lactate 3.1 H, Calcium 9.2, Magnesium 1.5 L, Total Bilirubin 0.8, AST 28, ALT 50, Alkaline Phosphatase 72, Total Protein 7.6, Albumin 4.8, Globulin 2.8, Albumin/Globulin Ratio 1.7, Lipase 35, Serum HCG, Qual Negative 10/29/25 12:43: Urine Color Yellow, Urine Appearance Clear, Urine pH 8.5, Ur Specific [place] 1.015, Urine Protein Negative, Urine Glucose (UA) Negative, Urine Ketones Trace, Urine Blood Negative, Urine Nitrate Negative, Urine Bilirubin Negative, Urine Urobilinogen 0.2, Ur Leukocyte Esterase Negative, Urine RBC None, Urine WBC Occasional, Ur Squamous Epith Cells Occasional, Urine Bacteria Trace 10/29/25 12:32 10/29/25 12:32 Orders (Tests/Meds): ED MEDICATIONS Generic Name Dose Route Start Last Admin Trade Name Freq PRN Reason Stop Dose Admin Sodium Chloride 10 ml 10/29/25 13:28 10/29/25 13:29 Sodium Chloride 0.9% 10ml Syr (Rad Only) IV 11/28/25 13:27 10 ml NEEDED PRN Administration Maintain IV Site Discontinued Medications Generic Name Dose Route Start Last Admin Trade Name Freq PRN Reason Stop Dose Admin Sodium Chloride 1,000 mls @ 999 mls/hr 10/29/25 12:36 10/29/25 12:45 Sod Chlor 0.9% 1000ml Bag IV 10/29/25 13:36 999 mls/hr .Q1H1M ONE Administration Iopamidol 75 ml 10/29/25 13:28 10/29/25 13:29 Iopamidol-370 (76%);100ml Bottle IV 10/29/25 13:29 75 ml ONCE ONE Administration Ketorolac Tromethamine 15 mg 10/29/25 12:37 10/29/25 12:45 Ketorolac 15mg/Ml Vial IV 10/29/25 12:38 15 mg ONCE ONE Administration Ondansetron HCl 4 mg 10/29/25 12:36 10/29/25 12:46 Ondansetron 4mg/2ml Vial IV 10/29/25 12:37 4 mg ONCE ONE Administration ORDERS Category Date Time Status CT abdomen pelvis w con Stat Cat Scan 10/29/25 12:36 Completed Complete Blood Count Auto Diff Stat Lab 10/29/25 12:32 Completed Comprehensive Metabolic Panel Stat Lab 10/29/25 12:32 Completed Diarrhea 23 Panel, PCR Stat Lab 10/29/25 12:37 Ordered HCG Qualitative, Serum Stat Lab 10/29/25 12:32 Completed Lactic Acid Stat Lab 10/29/25 12:32 Completed Lipase Stat Lab 10/29/25 12:32 Completed Magnesium Stat Lab 10/29/25 12:32 Completed Urinalysis and Microscopic Stat Lab 10/29/25 12:43 Completed Medical Decision Narrative: 35-year-old female presents to the emergency department with nausea vomiting diarrhea abdominal pain that started early this morning, has had waxing and waning chronic symptomatology for last 3 months, differential diagnose include but not limited to colitis ileitis, gastroenteritis, gastritis, GERD, psychogenic nausea vomiting, diverticulitis, pancreatitis, volvulus, among others. I discussed this patient's case with the attending physician Dr. Galicia he saw and examined the patient as well. Will obtain basic laboratory studies, CT and pelvis with contrast, diarrhea panel, hCG qualitative lactic acid lipase magnesium UA, 1 L NS will be given, will give 15 mg IV Toradol for pain and 4 mg IV Zofran for nausea. CBC is notable for leukocytosis 11.8 otherwise unremarkable hCG qualitative is negative CMP is notable for minimal BUN elevation at 21, lactic acidosis 3.1, minimal hypomagnesia at 1.5, lipase within normal limits UA is notable for trace ketonuria negative nitrites negative leukocyte esterase Microscopic analysis of the patient's urine is notable for no RBCs occasional WBCs occasional squamous epithelial cells and trace bacteria I reviewed the patient CT and pelvis with contrast on the corresponding radiologic report no acute findings. I discussed all results with the patient today with the bedside, patient is able to tolerate p.o. intake, has had some improvement of her symptomatology, CT is unremarkable, laboratory studies are unremarkable, suffer some mild hypomagnesia, most likely in setting of GI losses, no need to repeat lactic acid level, as lactic acidosis can be contributed to GI losses and persistent nausea vomiting and diarrhea, patient to be discharged home to self-care. Shared decision making is utilized I believe this appropriate as patient tolerated p.o. intake has GI follow-up and has antiemetics at home, will prescribe the patient 20 mg p.o. Bentyl as needed for crampy abdominal pain, as well as magnesium oxide supplement to take for the next 5 days for hypomagnesia. Will forego stool sample at this time, patient is unable to provide 1, patient is also not from the area, thus will not prescribe/send patient home with outpatient stool sample to return to the emergency department. At this time will not change management coordinator. Patient was given strict ED return precautions. Once again patient family are in agreement with current treatment plan/discharge plan. Critical Care Critical Care Time Critical Care Time: No
--- NOTE | 2025-10-29 12:36 | CT_ITS ---
PROCEDURE INFORMATION: Exam: CT Abdomen And Pelvis With Contrast Exam date and time: 10/29/2025 1:21 PM Age: 35 years old Clinical indication: Nausea and vomiting; Abdominal pain; Prior surgery; Surgery date: 6+ months; Surgery type: Gallbladder removed in 2019; Additional info: Diffuse abd pain, nausea, vomiting and diarrhea TECHNIQUE: Imaging protocol: Computed tomography of the abdomen and pelvis with contrast. Radiation optimization: All CT scans at this facility use at least one of these dose optimization techniques: automated exposure control; mA and/or kV adjustment per patient size (includes targeted exams where dose is matched to clinical indication); or iterative reconstruction. Contrast material: ISOVUE; Contrast volume: 75 ml; Contrast route: IV; COMPARISON: No relevant prior studies available. FINDINGS: Liver: Normal. No mass. Gallbladder and biliary ducts: Cholecystectomy Pancreas: Normal. No ductal dilation. Spleen: Normal. No splenomegaly. Adrenal glands: Normal. No mass. Kidneys and ureters: Normal. No hydronephrosis. Stomach and bowel: Unremarkable. No obstruction. No mucosal thickening. Appendix: No evidence of appendicitis. Intraperitoneal space: Unremarkable. No free air. No significant fluid collection. Vasculature: Unremarkable. No abdominal aortic aneurysm. Lymph nodes: Unremarkable. No enlarged lymph nodes. Urinary bladder: Unremarkable as visualized. Reproductive: Unremarkable as visualized. Bones/joints: Unremarkable. No acute fracture. Soft tissues: Unremarkable. IMPRESSION: No acute findings.
[2025-10-29] MEDS: 0.9 % SODIUM CHLORIDE 1000ML 1,000 ML 999 ML IV (12:45)
[2025-10-29] MEDS: KETOROLAC 15MG/ML VIAL 15 MG IV (12:45)
[2025-10-29 12:46] LABS: Hematocrit 47.1 % (37.0-47.0); Hemoglobin 15.5 g/dL (12.2-16.2); Immature Granulocytes % 0.3 %; Mean Corpuscular HGB Conc 32.9 g/dL (31.8-35.4); Mean Corpuscular Hemoglobin 29.7 pg (27.0-31.2); Mean Corpuscular Volume 90.2 fl (81-99); Nucleated Red Blood Cells % 0 %; Platelet Count 172 K/mm3 (142-424); Red Blood Count 5.22 M/mm3 (4.20-5.40); Red Cell Distribution Width-SD 41.3 fL; White Blood Count 11.8 K/mm3 (4.8-10.8)
[2025-10-29] MEDS: ONDANSETRON 4MG/2ML VIAL 4 MG IV (12:46)
[2025-10-29 12:48] LABS: Microscopic, Urine URINE MICROSCOPIC (MICROSCOPIC)
[2025-10-29 13:11] LABS: Bilirubin,Urine Negative (Negative); Color,Urine YELLOW (Yellow); Glucose,Urine (UA) Negative (Negative); Ketones,Urine TRACE (Negative); Leukocyte Esterase,Urine Negative (Negative); PH,Urine 8.5 (5.0-8.5); Protein,Urine Negative (Negative); Specific Gravity, Urine 1.015 (1.005-1.030); Urobilinogen,Urine 0.2 EU/dl (0.2)
[2025-10-29 13:12] LABS: HCG Qualitative, Serum Negative (Negative)
--- OUTSIDE RECORDS SUMMARY | 2025-10-29 13:15 | XMS_ITS | Patient Health Record ---
Author Organization [facility] Address [address] [place] [address] Care Team Providers Care Yarn Man Name Role Phone NO PCP Primary Care Provider UnavailShruthi Henao Unavailable [phone] Meng [id number] Shruthi Unavailable [phone] Sergio Russo Unavailable [phone] Alia Sharma Unavailable [phone] Milagros Roberts Unavailable [phone] Reyna Gonzalez Unavailable [phone] Divya Powell Unavailable [phone] Allergies Allergen (clinical drug ingredient) Drug/Non Drug Allergy documented on EMR Reaction Allergy Type Onset Date Status MOTRIN ORANGE (uncoded) hives Allergy Active Aloe hives Drug Allergy Active budesonide Pulmicort Flexhaler swelling Drug Allergy Active Results Component Value Reference Range Notes Vitamin D, 25-Hydroxy, Total Reviewed date:01/21/2025 12:19:59 PM Interpretation:Low Performing Lab:[facility] [place], [address] [facility], Phone - [phone], Director - [facility] Notes/Report: Vitamin D, 25-Hydroxy, Serum 15 Reference Range: All Ages: Target levels 30 - 100 TSH reflex to T4 Reviewed date:01/21/2025 08:33:43 AM Interpretation:Normal Performing Lab:[facility] [place], [address] [facility], [place], Phone - [phone], Director - PhDRictimmyi Notes/Report: TSH 1.210 0.450-4.500 uIU/mL CMP14+LP Reviewed date:01/21/2025 12:19:51 PM Interpretation:Abnormal Performing Lab:[facility] [place], [address] [facility], Phone - [phone], Director - Servando Notes/Report: Glucose 95 70-99 mg/dL BUN 12 6-20 mg/dL Creatinine 0.73 0.57-1.00 mg/dL eGFR 112 >59 mL/min/1.73 BUN/Creatinine Ratio 16 9-23 Sodium 139 134-144 mmol/L Potassium 4.4 3.5-5.2 mmol/L Chloride 101 96-106 mmol/L Carbon Dioxide, Total 25 20-29 mmol/L Calcium 9.2 8.7-10.2 mg/dL Protein, Total 6.4 6.0-8.5 g/dL Albumin 4.2 3.9-4.9 g/dL Globulin, Total 2.2 1.5-4.5 g/dL Bilirubin, Total 0.4 0.0-1.2 mg/dL Alkaline Phosphatase 72 44-121 IU/L AST (SGOT) 14 0-40 IU/L ALT (SGPT) 31 0-32 IU/L Cholesterol, Total 183 100-199 mg/dL Triglycerides 99 0-149 mg/dL HDL Cholesterol 48 >39 mg/dL VLDL Cholesterol [place] 18 5-40 mg/dL LDL Chol Calc (NIH) 117 0-99 mg/dL LDL/HDL Ratio 2.4 0.0-3.2 ratio LDL/HDL Ratio Men Women 1/2 Avg.Risk 1.0 1.5 Avg.Risk 3.6 3.2 2X Avg.Risk 6.2 5.0 3X Avg.Risk 8.0 6.1 Hemoglobin A1c Reviewed date:01/21/2025 08:35:04 AM Interpretation:Normal [facility]forming [facility], [address] [facility], Phone - [phone], Director - Servando Notes/Report: Hemoglobin A1c 5.4 4.8-5.6 % . Prediabetes: 5.7 - 6.4 Diabetes: >6.4 Glycemic control for adults with diabetes: <7.0 Lipid Panel w/ Chol/HDL Rati o Reviewed date:01/21/2025 08:32:56 AM Interpretation:Normal Performing Lab:[facility], [address] [facility], Phone - [phone], [facility] Notes/Report: T. Chol/HDL Ratio 3.8 0.0-4.4 ratio T. Chol/HDL Ratio Men Women 1/2 Avg.Risk 3.4 3.3 Avg.Risk 5.0 4.4 2X Avg.Risk 9.6 7.1 3X Avg.Risk 23.4 11.0 Iron and TIBC Reviewed date:01/21/2025 08:33:12 AM Interpretation:Normal Performing Lab:[address], Phone - [phone], Director - [facility] Notes/Report: Iron Bind.Cap.(TIBC) 283 250-450 ug/dL UIBC 197 131-425 ug/dL Iron 86 27-159 ug/dL Iron Saturation 30 15-55 % Vitamin B12 and Folate Reviewed date:01/21/2025 08:33:57 AM Interpretation:Normal Performing Lab:[address], Phone - [phone], [facility] Notes/Report: Vitamin B12 740 241-2937 pg/mL Folate (Folic Acid), Serum 11.2 >3.0 ng/mL A serum folate concentration of less than 3.1 ng/mL is considered to represent clinical deficiency. Testosterone, Total, LC/MS Reviewed date:01/21/2025 08:34:38 AM Interpretation:Normal Performing Lab:[address], Phone - [phone], Director - [facility] Notes/Report: Testosterone, Total, LC/MS 43 This test was developed and its performance characteristics determined by [employer]. It has not been cleared or approved by the Food and Drug Administration. Reference Range: Adult Females Premenopausal 10 - 55 Postmenopausal 7 - 40 CBC With Differential/Platel et Reviewed date:01/21/2025 08:34:55 AM Interpretation:Normal Performing Lab:[address], Phone - [phone], [facility] Notes/Report: WBC 6.9 3.4-10.8 x10E3/uL RBC 4.57 3.77-5.28 x10E6/uL Hemoglobin 13.9 11.1-15.9 g/dL Hematocrit 42.4 34.0-46.6 % MCV 93 79-97 fL MCH 30.4 26.6-33.0 pg MCHC 32.8 31.5-35.7 g/dL RDW 12.1 11.7-15.4 % Platelets 177 150-450 x10E3/uL Neutrophils 60 Not Estab. % Lymphs 30 Not Estab. % Monocytes 8 Not Estab. % Eos 2 Not Estab. % Basos 0 Not Estab. % Neutrophils (Absolute) 4.1 1.4-7.0 x10E3/uL Lymphs (Absolute) 2.1 0.7-3.1 x10E3/uL Monocytes(Absolute) 0.6 0.1-0.9 x10E3/uL Eos (Absolute) 0.1 0.0-0.4 x10E3/uL Baso (Absolute) 0.0 0.0-0.2 x10E3/uL Immature Granulocytes 0 Not Estab. % Immature Grans (Abs) 0.0 0.0-0.1 x10E3/uL Flu/COVID Rapid Antigen (IH) Reviewed date:12/27/2024 03:27:19 PM Interpretation:Positive Performing Lab: Notes/Report: Positive Flu A neg Negative - Positive Flu B neg Negative - Positive SARS CoV 2 positive Negative - Positive Reason For Referral Reason Dietitian Referral Nutrition Therapy Diagnosis 1 BMI 40.0-44.9, adult (Z68.41) Diagnosis 2 PCOS (polycystic ova donny syndrome) (E28.2) Diagnosis 3 Endometriosis (N80.9 ) Diagnosis 4 Obesity, morbid, BMI 40.0-49.9 (E66.01) Diagnosis 5 Encounter for weight management (Z76.89) Referral Organization [address] [address] Referring Provider First Name [facility] Referring Provider Last Name Valeria Referring Provider Speciality Family Nicho cunninghamice Referred Provider [facility] Jacob Humphrey Referred Provider Specialty Dietitian Referral Priority Routine Medications Medication SIG (Take, Route, Frequency, Duration) Notes Start Date End Date Status Triamcinolone Acetonide 0.1 % 1 application to affected rash areas as needed for itching Externally twice a day; Duration: 10 days 07/07/2025 Active Protein 80 % as directed Orally Active Albuterol Sulfate HFA 108 (90 Base) MCG/ACT 1 puff as needed Inhalation every 4 hrs PRN Active Immunizations Vaccine Route Administration Date Status Comme nts MODERNA Covid 19 1st Dose (0.5ml) 18yr and up IM Intramuscular 02/15/2021 Administered MODERNA Covid 19 2nd Dose (0.5ml) 18yr and up IM Intramuscular 03/15/2021 Administered [id number] Quad PFS (0.5mL Admin) 18 y/o & older Unknown 02/25/2022 Administered [id number] FluBLOK, 18 y/o & Older, Quad PDF (0.5mL Admin) IM Intramuscular 08/21/2023 Administered Pfizer Covid19 (12yr & up) Jerome (0.3mL) IM Intramuscular 08/21/2023 Administered Social History Tobacco Use: Social History Observation Description Date Details (start date - stop date) Never Smoker NA - NA Alcohol Misuse/Abuse (Audit C): Question Answer Notes Did you have a drink contain ing alcohol in the past year? Yes How often did you have a drink containing alcoho l? Monthly or less (1 point) How many drinks did you have on a typical occasi on? 1 or 2 (0 points) How often did you have six o r more drinks on one occasion? Never (0 points) Points: 1 Interpretation: Negative Tobacco Control (Standard) Question Answer Notes Tobacco use: Nonsmoker AUDIT-C (Standard) Question Answer Notes Did you have a drink containing alcohol in the p ast year? No Points 0 Interpretation Negative Problems Problem Type SNOMED Code ICD Code Onset Dates Problem Status W/U Status Risk Notes Problem Anxiety (64611697) Anxiety (F41.9) Active confi rmed Problem Allergic rhinitis caused by pollen (51654052) Seasonal allergic rhinitis due to pollen (J30.1) Active confirmed Problem Kidney stone (00741747) Kidney stone on right side (N20.0) Active confirmed Problem Body mass index 40+ - morbidly obese (400205307) BMI 40.0-44.9, adult (Z68.41) Inactive confirmed Problem Seasonal allergy (681445626) Seasonal allergies (J30.2) Active confirmed Problem Mild intermittent asthma (535894460) Asthma, mild intermittent (J45.20) Inactive confirmed Problem Morbid obesity (disorder) (159908505) Morbid (severe) obesity due to excess calories (E66.01) Inactive confirmed Problem Body mass index 40+ - severely obese (686927030) Body mass index [BMI] 40.0-44.9, adult (Z68.41) Active confirmed Problem Mild intermittent asthma (139094879) Mild intermittent asthma (J45.20) Active confirmed Problem Gastroesophageal reflux disease (844805968) GERD (K21.9) Active confirmed Problem History of circulatory system disease (992494587) History of heart murmur in childhood (Z86.79) Active confirmed Problem Polycystic ovary syndrome (disorder) (871494287) PCOS (polycystic ovarian syndrome) (E28.2) Active confirmed Problem Endometriosis (255289475) Endometriosis (N80.9) Active confirmed Problem Premature of (finding) (255999471) Premature (P07.30) Active confirmed Problem Morbid obesity (515377449) Obesity, morbid, BMI 40.0-49.9 (E66.01) Active confirmed Problem Seen in weight management clinic (finding) (869168329) Encounter for weight management (Z76.89) Inactive confirmed Problem Obesity (811222434) Obesity (BMI 30-39.9) (E66.9) Active confirmed Vital Signs Temperature 98.6 degrees Fahrenheit 07/07/2025 Respiratory Rate 16 /min 07/07/2025 Oximetry 98 07/07/2025 Blood pressure diastolic 80 mm Hg 07/07/2025 Height 63 in 07/07/2025 Blood pressure systolic 124 mm Hg 07/07/2025 Weight 223 lbs 07/07/2025 BMI 39.5 kg/m2 07/07/2025 Encounters Encounter Location Date Provider Diagnosis [id number] [facility] [address] [place] [address] 12/27/2024 Milagros Roberts Acute cough R05.1 and Acute COVID-19 U07.1 [address] [facility] [address] [address] 01/08/2025 Shruthi Fan Encounter for weight management Z76.89 ; BMI 40.0-44.9, adult Z68.41 ; Obesity, morbid, BMI 40.0-49.9 E66.01 ; Screening for endocrine disorder Z13.29 ; Screening for lipid disorders Z13.220 and Encounter for vitamin deficiency screening Z13.21 [address] [employer] [facility] [address] [facility] [address] [place] [address] 02/05/2025 Shruthi Fan Encounter for weight management Z76.89 ; BMI 40.0-44.9, adult Z68.41 and Obesity, morbid, BMI 40.0-49.9 E66.01 [address] [facility] [address] [facility] [place] [address] 03/22/2025 Alia Sharma Weight loss R63.4 [address] [facility] [address] [facility] [place] [address] 04/20/2025 Divya Powell Body mass index [BMI] 40.0-44.9, adult Z68.41 ; Obesity, morbid, BMI 40.0-49.9 E66.01 and Weight loss R63.4 [address] [facility] [address] [facility] [place] [address] 05/19/2025 Reyna Gonzalez Body mass index [BMI] 40.0-44.9, adult Z68.41 ; Obesity, morbid, BMI 40.0-49.9 E66.01 and Weight loss R63.[id number] [place], [place] [address] [facility] [address] [facility] [place] [address] 07/07/2025 Sergio Russo Obesity (BMI 30-39.9) E66.9 ; Bug bites W57.XXXA ; Rash and nonspecific skin eruption R21 and Elevated blood pressure reading R03.[address] [address] 01/21/2025 Shruthi Meng [address] [address] 01/21/2025 [address]ruthi Meng [address] [address] [address] 02/08/2025 Shruthi Meng Assessments Encounter Date Diagnosis (ICD Code) Assessment Notes Treatment Notes Treatment Clinical Notes Section Notes 12/27/2024 Acute COVID-19 (ICD-10 - U07.1) Instructed patient to have good respiratory hygiene by covering coughs and sneezes, hand washing and cleaning high-touch surfaces. Patient may return to normal activities when symptoms have been improving and patient has been fever free for 24 hours without the use of fever reducing medication. Stay well hydrated. Recommend Fluticasone or Triamcinolone nasal spray - one spray to each nostril once a day x 2-3 weeks. May continue for longer if you choose. DO NOT use Afrin or Mucinex nasal spray. They are different and should not be used for more than three days. Warm tea and honey Cetirizine, Loratidine, OR Fexofenadine daily for 1-2 weeks Follow up in the clinic or with PCP as needed 12/27/2024 Acute cough (ICD-10 - R05.1) Cepacol or chlorseptic cough drops 1-2 drops as needed. Drink plenty of fluids. Fluids may help soothe an irritated throat. Hot fluids, such as tea or soup, may help decrease throat pain. Use wzwi-qca-ljrdal r throat lozenges to soothe irritation. Regular cough drops or hard candy may also help. Use a vaporizer or humidifier to add moisture to your bedroom. Follow the directions for cleaning the machine. 01/08/2025 BMI 40.0-44.9, adult (ICD-10 - Z68.41) Continue healthy eating and exercise. May follow up with [facility]it[facility] via a telehealth visit at [email or web address] to help with dietary changes to lower BMI. I would recommend a PCOS friendly diet, such as the Mediterranean diet as it is high in fiber, low in processed foods and lower in calorie. Please discuss this when you schedule the dietitican appointment Continued exercise routine of physical activity of at least 30 minutes or more 5 to 7 days a week, or a minimum of 150 minutes of physical activity/week. This should include aerobic and resistance training as tolerated. Some great resources include: Healthy Living & Nutrition Advice - [facility] Citizen Of [place] Heart Association To be a relentless force for a world of longer, healthier lives My Plate [place]. Department of Agriculture National Diabetes Prevention Program National Diabetes Prevention Program CDC 3. , Learning About Healthy Weight material was published It is recommended to add ICD10 correlating with Obesity as the primary diagnosis and the BMI Z code and comorbidities as secondary diagnosis. 02/05/2025 BMI 40.0-44.9, adult (ICD-10 - Z68.41) Today we have Continued your weight loss management journey and have added a weight loss medication to your lifestyle regimen. Starting you on weight loss medication: Semaglutide 0.25 mg once a week. Take the Ondansetron as needed if you experience nausea from the Semaglutide. Review, educate and discuss potential side effects of medication. Injection instructions reviewed and discussed, please also verify information with inset that comes with the medication Next appointment scheduled for Telehealth on 03/04/2025 with this Telehealth provider at 8:40 AM. Please check your email for confirmation, Body Mass Index: Care Instructions material was published 02/05/2025 Encounter for weight management (ICD-10 - Z76.89) Continue healthy eating and exercise. May follow up with [employer] [facility]it[facility] via a telehealth visit at [email or web address] to help with dietary changes to lower BMI. Continued exercise routine of physical activity of at least 30 minutes or more 5 to 7 days a week, or a minimum of 150 minutes of physical activity/week. This should include aerobic and resistance training as tolerated. Some great resources include: Healthy Living & Nutrition Advice - [facility] Citizen [employer] [place] Heart Association To be a relentless force for a world of longer, healthier lives My Plate U.[place]. Department of Agriculture National Diabetes Prevention Program National Diabetes Prevention Program CDC ~Next appointment made for Feb 05 at 1:00 PM Eastern via Telehealth with this provider. Please check [employer] email for confirmation 03/22/2025 Weight loss (ICD-10 - R63.4) 01/08/2025 Encounter for weight management (ICD-10 - Z76.89) Today we have started your weight loss management journey. We have opted to start with first line interventions like Lifestyle modifications. Esteban (Xenical) is not recommended at this time becuase you do not have a gallbladder Phentermine can not be prescribed at [facility] at this time because it is a controlled substance. If you would like this medicaiton please follow up with your family doctor. Plenity and Contrave might be an option for appeipte surpression and we can talk about this during your next visit Semaglutide, Tirzepatide and Liraglutide might be options as well. I would recommend Semaglutide for weight loss as it has a mean weight loss of 22 to 27 lbs as well as cheaper cost to get it compounded. Please check with your insurance over the next 4 weeks to see if you would like any of these medications compounded or if insurance will cover them. ~Next appointment made for Feb 05 at 1:00 PM Eastern via Telehealth with this provider. Please check [employer] email for confirmation It is recommended to add ICD10 correlating with Obesity as the primary diagnosis and the BMI Z code and comorbidities as secondary diagnosis. 04/20/2025 Obesity, morbid, BMI 40.0-49.9 (ICD-10 - E66.01) It is recommended to add ICD10 correlating with Obesity as the primary diagnosis and the BMI Z code and comorbidities as secondary diagnosis. 04/20/2025 Body mass index [BMI] 40.0-44.9, adult (ICD-10 - Z68.41) It is recommended to add ICD10 correlating with Obesity as the primary diagnosis and the BMI Z code and comorbidities as secondary diagnosis. 05/19/2025 Obesity, morbid, BMI 40.0-49.9 (ICD-10 - E66.01) 05/19/2025 Body mass index [BMI] 40.0-44.9, adult (ICD-10 - Z68.41) 07/07/2025 Obesity (BMI 30-39.9) (ICD-10 - E66.9) Continue lifestyle interventions for weight loss in addition to medication , Learning About Healthy Weight material was printed, Body Mass Index: Care Instructions material was printed, Learning About Obesity material was printed 07/07/2025 Bug bites (ICD-10 - W57.XXXA) Insect Stings and Bites: Care Instructions material was printed 07/07/2025 Rash and nonspecific skin eruption (ICD-10 - R21) Rash: Care Instructions material was printed 05/19/2025 Weight loss (ICD-10 - R63.4) 02/05/2025 Obesity, morbid, BMI 40.0-49.9 (ICD-10 - E66.01) Regular follow up every 4 weeks with [facility] either in person or via telehealth for routine evaluation to discuss successes, barriers, and next steps on your weight loss journey. 01/08/2025 Obesity, morbid, BMI 40.0-49.9 (ICD-10 - E66.01) Regular follow up every 4 weeks with [facility] either in person or via telehealth for routine evaluation to discuss successes, barriers, and next steps on your weight loss journey. It is recommended to add ICD10 correlating with Obesity as the primary diagnosis and the BMI Z code and comorbidities as secondary diagnosis. 04/20/2025 Weight loss (ICD-10 - R63.4) It is recommended to add ICD10 correlating with Obesity as the primary diagnosis and the BMI Z code and comorbidities as secondary diagnosis. 01/08/2025 Screening for endocrine disorder (ICD-10 - Z13.29) Labs published to your patient portal. Please print off, and take to your local [facility] facility OR facility of choice. Fax number for results provided on the lab order. It is recommended to add ICD10 correlating with Obesity as the primary diagnosis and the BMI Z code and comorbidities as secondary diagnosis. 01/08/2025 Screening for lipid disorders (ICD-10 - Z13.220) Labs published to your patient portal. Please print off, and take to your local [facility] facility OR facility of choice. Fax number for results provided on the lab order. , Cholesterol and Triglycerides Tests: About These Tests material was published It is recommended to add ICD10 correlating with Obesity as the primary diagnosis and the BMI Z code and comorbidities as secondary diagnosis. 07/07/2025 Elevated blood pressure reading (ICD-10 - R03.0) High Blood Pressure: Care Instructions material was printed, Learning About High Blood Pressure material was printed 01/08/2025 Encounter for vitamin deficiency screening (ICD-10 - Z13.21) Labs published to your patient portal. Please print off, and take to your local [facility] facility OR facility of choice. Fax number for results provided on the lab order. It is recommended to add ICD10 correlating with Obesity as the primary diagnosis and the BMI Z code and comorbidities as secondary diagnosis. 01/08/2025 Other This visit was conducted via [employer]. Please understand that the care that was provided during today's virtual visit was based upon the information you have provided. Due to the limitation of virtual care a comprehensive physical examination could not be performed. If you experience any worsening of your condition we recommend that you seek an in person evaluation with your nearest [facility], Immediate Care Center, or Emergency Room, Complete Blood Count (CBC): About This Test material was published, Hemoglobin A1c: About This Test material was published, Iron: About This Test material was published Ensure all placeholders are either removed or addressed as applicable for patient visit. Consider nutrition/dietici an referral as well, recommendations for lifestyle modification It is recommended to add ICD10 correlating with Obesity as the primary diagnosis and the BMI Z code and comorbidities as secondary diagnosis. 02/05/2025 Other Semaglutide Injection [ASHP] material was published 04/20/2025 Other Ensure all placeholders are removed or addressed as applicable to patient visit It is recommended to add ICD10 correlating with Obesity as the primary diagnosis and the BMI Z code and comorbidities as secondary diagnosis. 07/07/2025 Other Semaglutide Injection material was printed, Triamcinolone Topical material was printed NOTE to Provider of Record: MIPS recommendations for Pre Hypertensive Reading in the past 12 months (120-129 systolic or </= 80 diastolic): 1) Recommend to rescreen blood pressure in 2-6 months AND 2) Provide and document recommendations for non-pharmacologic interventions in the Preventative Medicine window, which may include Lifestyle recommendations, Physical Activity recommendations, Weight Reduction Recommendations, or Dietary Recommendations OR Provide and document a referral to alternate care provider Plan Of Treatment No Information Insurance Providers Payer Name Payer Address Payer Phone Subscriber Number Group Number Insured Name Patient Relationship to Insured Coverage Start Date Coverage End Date [facility] [address] [place] [address] [id number] Lennie Magaña Self - patient is the insured Medications Administered Medication Instructions Date of Administration Dosage Notes Toradol 09/15/2016 60 mg Medical (General) History Medical History History ICD Code Seasonal allergies J30.2 Mild intermittent asthma J45.20 Anxiety F41.9 GERD K21.9 History of heart murmur in childhood Z86 .79 PCOS (polycystic ovarian syndrome) E28.2 Endometriosis N80.9 Premature P07.30 Surgical History Surgery Date(Month/Year) endoscopy 2020 wisdom teeth 2019 gallbladder 11 tonsillectomy age 10 Hospitalization History Reason Date(Month/Year) endoscopy for gallstones 2020 premature scarlet fever age 5
--- OUTSIDE RECORDS SUMMARY | 2025-10-29 13:15 | XMS_ITS | Encounter Summary ---
Author Organization [place] [place] [address] Care Team Providers Care Director Of Testing Name Role Phone Unavailable Primary Care Provider Unavailabl e Reason for Referral * Surgical (Routine) - Authorization Not Needed Specialty Diagnoses / Procedures Referred By Contact Referred To Contact Gastroenterology Diagnoses Epigastric abdominal pain Procedures ESOPHAGOGASTRODUODENOSCOPY (EGD) WA ESOPHAGOGASTRODUODENOSCOPY TRANSORAL DIAGNOSTIC WA DILATION ESOPH UNGUIDED SOUND/BOUGIE 1/MULT PASS WA EGD INSERT GUIDE WIRE DILATOR PASSAGE ESOPHAGUS WA EGD BALLOON DILATION ESOPHAGUS <30 MM DIAM WA EGD TRANSORAL BIOPSY SINGLE/MULTIPLE Kriss Reyna MD [facility] [place] [address] Phone: tel:[phone] fax:[phone] Referral ID Status Reason Start Date Expiration Date Visits Requested Visits Authorized [id number] Authorization Not Needed 09/13/2025 09/13/2026 1 1 Encounter Details Date Type Department Care Team (Late st Contact Info) Description 09/13/2025 Telephone [facility] [address] [facility] 1D ENTRANCE, 3RD [place] [address] Kriss Reyna MD [address] [place] [address] Social History Tobacco Use Types Packs/Day Years [...] on file documented as of this encounter Miscellaneous Notes * Telephone Encounter - Woody Andrade, Clerical Staff - 09/13/2025 4:23 PM EST Have you ever had a colonoscopy? N/A PCP/Referring No primary care provider on file. Referring: What are the signs and symptoms? EGD w/anesth epigastric abd pain Is there a family history of the problem? No What are the patient's allergies? Allergies[1] What is the patient's personal history? Heart Disease/ Valve Replacement/ MVP/Murmur Lung Disease What is the patient's surgical history? Surgical History[2] What medications is the patient taking? Prior to Admission medications Medication Sig Start Date End Date Last Dose Authorizing Provider famotidine (PEPCID) 20 mg Oral Tablet Take 1 Tablet by mouth daily. 09/13/25 Kriss Reyna MD famotidine (PEPCID) 20 mg Oral Tablet Take 1 Tablet by mouth 2 times daily for 15 days. 09/13/25 09/28/25 Kriss Reyna MD loratadine (CLARITIN) 10 mg Oral Tablet Take 10 mg by mouth daily. Provider, Historical metFORMIN XR (GLUCOPHAGE-XR) 750 mg Oral Tablet Sustained Release 24 hr Take 750 mg by mouth daily.Provider, Historical metoclopramide HCl (REGLAN) 10 mg Oral Tablet Take 1 Tablet by mouth every 8 hours as needed for Nausea for up to 30 days. 09/13/25 10/13/25 Kriss Reyna MD metoclopramide HCl (REGLAN) 5 mg Oral Tablet Take 1 Tablet by mouth 4 times daily. 09/13/25 Kriss Reyna MD metoclopramide HCl (REGLAN) 5 mg Oral Tablet Take 1 Tablet by mouth 4 times daily. 09/13/25 Kriss Reyna MD montelukast (SINGULAIR) 10 mg Oral Tablet Take 10 mg by mouth every evening. Provider, Historical norgestimate-ethinyl estradiol (ORTHO TRI-CYCLEN;TRI-SPRINTEC) 0.18/0.215/0.25 mg-35 mcg (28) Oral Tablet Take 1 Tab by mouth daily. Provider, Historical ondansetron (ZOFRAN-ODT) 4 mg Oral Tablet, Rapid Dissolve Dissolve 1 Tablet by mouth every 6 hours as needed for Nausea for up to 30 days. 08/30/25 09/29/25 Alberto Crenshaw MD sertraline (ZOLOFT) 50 mg Oral Tablet Take 75 mg by mouth daily. Provider, Historical topiramate (TOPAMAX) 25 mg Oral Tablet Take by mouth 2 times daily. Provider, Historical Do you currently have chest pain? No Are you currently being seen by a drum tender or have any cardiac testing scheduled? No Hold Blood Thinner __no days Do you take Adipex/Phentermine (dulaglutide (Trulicity), exenatide ER (Bydureon BCise), semaglutide(Ozempic, Wegovy), tirzepatide (mounjaro, zepbound)? no If patient answers yes instructed to hold 7 days: no longer on wegovy Do you take Steglatro (Ertugliflozin)? no If patient answers yes instructed to hold 4 days no Do you take Stop Jardiance (Empagliflozin), Invokana (Canagliflozin) & Farxiga (Dapagliflozin),Naltrexone/Burproprione (Contrave) no If patient answers yes instructed to hold 3 days no Any additional instructions: Insurance anthem ppo What prep is used? npo instructoins sent to [facility] Scheduled 09/28/25 11:15am SB son endo Do you have sleep apnea? no Do you have an abdominal aortic aneurysm? no [1] Allergies Allergen Reactions [place] Hives Coconut Hives Budesonide Other (See Comments) But NOT other ICS Motrin [Ibuprofen] Hives [2] Past Surgical History: Procedure Laterality Date CHOLECYSTECTOMY, LAPAROSCOPIC N/A 09/25/2020 LAPAROSCOPIC CHOLECYSTECTOMY ; Surgeon: Tucker Lynn DO; Location: [facility] MAIN OR; Service: General DENTAL SURGERY TONSILLECTOMY documented in this encounter Plan of Treatment Upcoming Encounters Date Type Department Care Team (Late st Contact Info) Description 11/23/2025 1:30 PM EST Office Visit [facility] [address] [facility] 1D ENTRANCE, 3RD [place] [address] Kriss Reyna MD [address] [place] [address] documented as of this encounter Results * ESOPHAGOGASTRODUODENOSCOPY (EGD) (09/28/2025 [...] None Staff Staff Role Joey Metz CRNA JUNIOR ENGINEER Jenna Child, THEO Furnace Packer Meggan Garcia, senior branch manager Nurse Nadja Woods MD Anesthesiologist Kriss Reyna [...] TISSUE REQUEST Kriss Reyna MD 09/28/2025 1124 2 : Gastric Polyp via Forceps Tissue Gastric PATHOLOGY TISSUE REQUEST Kriss Reyna MD 09/28/2025 1124 Anesthesia Event Time In Patient In - Proc. Room 11:05 AM Kriss Reyna MD ENDOSCOPY PROCEDURE ORDERABLE S Final Result documented in this encounter Visit Diagnoses Diagnosis Epigastric abdominal pain- Primary Abdominal pain, epigastric Preop testing- Primary Preoperative examination, unspecified Epigastric abdominal pain Abdominal pain, epigastric documented in this encounter
--- OUTSIDE RECORDS SUMMARY | 2025-10-29 13:15 | XMS_ITS | Encounter Summary ---
Author Organization [facility] [place] [place] [address] Care Team Providers Care Title Investigator Name Role Phone Unavailable Primary Care Provider Unavailabl e Encounter Details Date Type Department Care Team (Late Contact Info) Description 09/27/2025 Results Follow-Up [facility] [address] [facility] 1D [address]TRANCE, [address] [place] [address] Kriss Reyna MD [facility] [place] [address] RIGHT UPPER QUADRANT Social History Tobacco Use Types Packs/Day Years [...] on file documented as of this encounter Plan of Treatment Upcoming Encounters Date Type Department Care Team (Late Contact Info) Description 11/23/2025 1:30 PM EST Office Visit [facility] GASTR[facility] [address], [address] [place] [address] Kriss Reyna MD [facility] [place] [address] documented as of this encounter Visit Diagnoses Not on filedocumented in this encounter
--- OUTSIDE RECORDS SUMMARY | 2025-10-29 13:15 | XMS_ITS | Clinical Summary ---
Author Organization [facility] Address [address] [place] [address] Care Team Providers Care Treasury Management Sales Consultant Name Role Phone EmanuelAnushaRoseannapaulino Kirkpatrick APRN Primary Care Provider Allergies Active Allergy Reactions Criticality Noted Date Comments [place] Hives Medium 08/27/2021 Budesonide 08/27/2017 But NOT other ICS Coconut Hives Medium 08/27/2021 Other Hives Medium 08/27/2021 pears Medications albuterol HFA 108 (90 Base) MCG/ACT inhaler Inhale 2 puffs into the lungs every 6 (six) hours as needed. 01/25/2020 Active loratadine (CLARITIN) 10 MG tablet Take 10 mg by mouth daily. Active Multiple Vitamins-Mineral s (MULTI-VITAMIN GUMMIES PO) Take by mouth. Active Multiple Vitamins-Mineral s (ZINC PO) Take by mouth. Active Ascorbic Acid (VITAMIN C PO) Take by mouth. Active Acetaminophen (TYLENOL 8 HOUR PO) Take by mouth. Active norgestimate-eth inyl estradiol (SPRINTEC 28) 0.25-35 MG-MCGIndication s:Dysmenorrhea Take 1 tablet by mouth daily. 90 tablet 3 09/08/2022 Active Active Problems Problem Noted Date Diagnosed Date Chronic pelvic pain in female 09/08/2022 Dysmenorrhea 09/08/2022 Abnormal MRI of abdomen 10/23/2021 Choledocholithiasis 10/23/2021 RUQ pain 08/28/2021 Overview (08/28/2021): Added automatically from request for surgery [id number] Immunizations Immunization Administration Dates Next Due COVID-19 MODERNA MONOVALENT AGES 12 AND OLDER 11/06/2021,03/15/2021,02/15/2021 DTaP, Unspecified 01/31/1997 IPV 01/31/1997 Influenza Recombinant Fannie valent PF (Flublok) 08/05/2022,02/25/2022 Influenza Vaccine Quadrivalent Pf 08/02/2021,10/2018 Influenza Vaccine Tri (IM) 08/08/2017 Influenza, Unspecified 07/31/2021 MMR 06/20/1997 Meningococcal MCV4, Unspecified 12/02/2010 Pneumococcal Polysaccharide 23 09/20/2018 Td (Adult), 2 Lf Tetanus Tox oid, Preservative Free, Adsorbed 06/07/2004 Family History Medical History Relation Comments Asthma Brother Cancer, Other or Unknown Type Father to unge and throat Diabetes Maternal Aunt Ovarian cancer Maternal Aunt Diabetes Maternal Grandmother Thyroid disease Maternal Grandmother Diabetes Maternal Uncle Diabetes Mother Heart disease Mother No Known Problems Sister 1 Post-traumatic stress disorder Sister 2 Relation Status Comments Brother Alive Father Alive Maternal Aunt Maternal Grandfather Maternal Grandmother Maternal Uncle Mother Alive Paternal Grandfather Paternal Grandmother Alive Sister 1 Alive Sister 2 Alive Social History Tobacco Use Types Packs/Day Years Used Date Smoking Tobacco: Never Smokeless Tobacco: Never Alcohol Use Standard Drinks/Week Comments Yes 0 (1 standard drink = 0.6 oz pur e alcohol) occassionally Comments No Sex and Gender Information Value Date Recorded Sex Assigned at Not on file Legal Sex Female 1:02 PM EDT Gender Identity Not on file Sexual Orientation Not on file Last Filed Vital Signs Vital Sign Reading Time Taken Comments Blood Pressure 122/80 02/18/2023 10:45 AM EDT Pulse 97 07/09/2022 10:03 AM EDT Temperature 36.5 C (97.7 F) 07/09/2022 10:03 AM EDT Respiratory Rate 16 07/09/2022 10:03 AM EDT Oxygen Saturation 99% 10/23/2021 7:00 PM EST Inhaled Oxygen Concentration - - Weight 109.8 kg (242 lb) 02/18/2023 10:45 AM EDT Height 160 cm (5' 3 ) 02/18/2023 10:45 AM EDT Body Mass Index 42.87 02/18/2023 10:45 AM EDT Plan of Treatment Health Maintenance Due Date Last Done Comments Polio (IPV) (2 of 3 - 4-dose series) 02/28/1997 01/31/1997 Tdap/Td Vaccine >11 yo (3 - Tdap) 06/08/2004 06/07/2004, 01/31/1997 Hepatitis B (HepB) Vaccine (1 of 3 - 19+ 3-dose series) 2011 HPV Vaccine (1 - 3-dose SCDM series) 2019 Cervical Cancer Screening 09/10/20242020, 11/08/2017 (Done at another facility) Annual SDOH Screening 11/09/2024 Influenza Vaccine (#1) 2025 2, 02/25/2022, 08/02/2021, Additional history exists Meningococcal ACWY Completed 12/02/2010 Pneumococcal Vaccines 6-49 yo Risk Aged Out 09/20/2018 No longer eligible based on patient's age to complete this topic Haemophilus Influenzae Type B (Hib) Vaccine Aged Out No longer eligible based on patient's age to complete this topic Hepatitis A (HepA) Vaccine Aged Out N o longer eligible based on patient's age to complete this topic Rotavirus (RV) Vaccine Aged Out No lo nger eligible based on patient's age to complete this topic Procedures Procedure Name Priority Date/Time Associated Diagnosis Comments PAP SMEAR Routine 09/10/2021 8:58 AM EDT Encounter for annual routine gynecological examination from Last 3 Months or Most Recently Relevant to Health Maintenance Results * Pap Smear - or -Pap Smear with HPV Testing (09/10/2021 8:58 AM EDT) Pathology SPECIMEN FROM UTERINE CERVIX / Unknown 09/10/2021 8:58 AM EDT 09/10/2021 8:19 PM EDT Comment:THINPREP ENDOCERVICA L/CERVICAL Narrative [facility] - 09/12/2021 8:14 AM EDT REVIEWING YOUR TEST RESULTS IN MYNORTONCHART IS NOT A SUBSTITUTE FOR DISCUSSING THOSE RESULTS WITH YOUR HEALTH CARE PROVIDER. PLEASE CONTACT YOUR PROVIDER VIA NORTONCHART TO DISCUSS ANY QUESTIONS OR CONCERNS YOU MAY HAVE REGARDING THESE TEST RESULTS. Patient Name: [facility] [address], [address] [place], [place] [id number] GYNECOLOGIC CYTOLOGY REPORT DIAGNOSIS: NEGATIVE (No evidence of intraepithelial lesions or malignancy) Inflammation SPECIMEN ADEQUACY: Satisfactory for evaluation: Endocervical cells present. Interpretation performed at: [facility] [address], [address] [place] [address] Test Name Result Result Date/Time Result Flag . HPV High Risk Negative 09/11/2021 09:02 Reference range for HPV high risk testing is Negative. Testing by Aptima HPV high risk for human papillomavirus high risk types(16,18,31,33,35,39,45,51,52,56,58,59,66 and 68) TEST INFORMATION: Human papillomavirus (HPV) high risk specific HPV genotypes have been shown to be associated with certain anogenital diseases including cervical carcinoma and its predisposing lesions. COMMENTS/RECOMMENDATIONS: Results of this test should be used in conjunction with clinical and cytology findings. This test only detects 14 of the most common high-risk HPV types and cannot differentiate between individual strains. This test has been approved by the [place] food and drug administration (FDA) for use in clinical settings and its performance has been tested and validated by [facility] lab on clinical samples. SPECIMEN SOURCE: THINPREP ENDOCERVICAL/CERVICAL CLINICAL HISTORY: REASON FOR PAP ROUTINE DATE OF LMP COMMENT 2 WEEKS AGO CLINICAL HISTORY NO SIGNIFICANT HISTORY DATE OF LAST PAP COMMENT 2017 LAST PAP SMEAR RESULTS NORMAL LAST MENSTRUAL PERIOD: Pap smear testing is subject to false negative and false positive results. This result should be interpreted in conjunction with history and clinical findings. ThinPrep specimens have been analyzed by the ThinPrep Imaging System ([employer]), an automated imaging and review system. Conflicts Analyst: Rigo Flower MD Director of Cytopathology: Lisset Livingston MD Roseanna Castellanos APRN PATHOLOGY/CYTOLOGY ORDE ED Final Result [facility] [address] [place] [address], [facility] [phone] from Last 3 Months or Most Recently Relevant to Health Maintenance Insurance ANTHEM Care Teams Treasury Management Sales Consultant Relationship Specialty Start Date End Date Roseanna Castellanos APRN PCP - General Nurse Practitioner Family 08/27/21
--- OUTSIDE RECORDS SUMMARY | 2025-10-29 13:15 | XMS_ITS | Clinical Summary ---
Author Organization [facility] Address [address] [place] [address] Care Team Providers Care Photographs Curator Name Role Phone None, None Primary Care Provider Unavailabl e Allergies No known active allergies Medications SULFAMETHOXAZOL E/TRIMETHOPRIM (BACTRIM PO) Take by mouth. Active cephALEXin (KEFLEX) 500 mg capsule Take by mouth 4 times daily. Active bacitracin zinc 500 unit/gram ointment Apply to affected area twice a day for a week 120 g 0 02/28/2017 Active Social History Tobacco Use Types Packs/Day Years Used Date Smoking Tobacco: Never Alcohol Use Standard Drinks/Week Comments Yes 0 (1 standard drink = 0.6 oz pur e alcohol) occ Comments No Sex and Gender Information Value Date Recorded Sex Assigned at Not on file Legal Sex Female 2:45 PM EDT Gender Identity Not on file Sexual Orientation Not on file Last Filed Vital Signs Vital Sign Reading Time Taken Comments Blood Pressure 130/57 02/28/2017 2:45 AM EDT Pulse 79 02/28/2017 2:45 AM EDT Temperature 37 C (98.6 F) 02/27/2017 11:38 PM EDT Respiratory Rate 16 02/28/2017 2:45 AM EDT Oxygen Saturation 100% 02/28/2017 2:45 AM EDT Inhaled Oxygen Concentration - - Weight 101.6 kg (224 lb) 02/27/2017 11:38 PM EDT Height 160 cm (5' 3 ) 02/27/2017 11:38 PM EDT Body Mass Index 39.68 02/27/2017 11:38 PM EDT Plan of Treatment Not on file Insurance [employer] [place] Care Teams Photographs Curator Relationship Specialty Start Date End Date None, None [address] [place] [address] PCP - General 06/25/16
--- OUTSIDE RECORDS SUMMARY | 2025-10-29 13:15 | XMS_ITS | Encounter Summary ---
Author Organization [facility] [place] [address] Care Team Providers Care Kitchen Assistant Name Role Phone Unavailable Primary Care Provider Unavailabl e Encounter Details Date Type Department Care Team (Latest Contact Info) Description 09/13/2025 Travel Social History Tobacco Use Types Packs/Day Years [...] EST Office Visit SEP GASTRO SON [address] [facility] 1D ENTRANCE, 3RD [place] [address] Kriss Reyna MD [address] [place] [address] documented as of this encounter Visit Diagnoses Not on filedocumented in this encounter
--- OUTSIDE RECORDS SUMMARY | 2025-10-29 13:15 | XMS_ITS | Encounter Summary ---
Author Organization [facility] [place] [address] Care Team Providers Care Chuck Wagon Cook Name Role Phone Unavailable Primary Care Provider Unavailabl e Reason for Visit * Reason Onset Date Comments Other 09/28/2025 Encounter Details Date Type Department Care Team (Late st Contact Info) Description 09/28/2025 Telephone SEP GASTRO SON [address] [facility] 1D [address]TRANCE, 3RD [place] [address] Kriss Reyna MD [address] [place] [address] Other Social History Tobacco Use Types Packs/Day Years [...] encounter Miscellaneous Notes * Telephone Encounter - Jennifer Peck MA - 09/28/2025 2:03 PM EST sw pharmacist she needed a frequency I daily as needed . pharmacist Domi manrique * Telephone Encounter - Iza Shook, Clerical Staff - 09/28/2025 12:51 PM EST [facility] CALLING WITH ? RE: LORATADINE 19 MG PLEASE GIVE THEM A CB EVA documented in this encounter Plan of Treatment Upcoming Encounters Date Type Department Care Team (Late st Contact Info) Description 11/23/2025 1:30 PM EST Office Visit [facility] GASTRO [facility]ON [address] [facility] [address], [address] [place] [address] Kriss Reyna MD [address] [place] [address] documented as of this encounter Visit Diagnoses Not on filedocumented in this encounter
--- OUTSIDE RECORDS SUMMARY | 2025-10-29 13:15 | XMS_ITS | Encounter Summary ---
Author Organization [place] [address] Care Team Providers Care Developmental Behavioral Physician Name Role Phone Unavailable Primary Care Provider Unavailabl e Encounter Details Date Type Department Care Team (Late Contact Info) Description 10/07/2025 Results Follow-Up [facility] ENDOSCOPY [address] [place] [address] Kriss Reyna MD [facility] [place] [address] PATHOLOGY TISSUE REQUEST Social History Tobacco Use Types Packs/Day Years [...] EST Office Visit SEP GASTRO SON [address] [facility] 1D ENTRANCE, 3RD [place] [address] Kriss Reyna MD [address] [place] [address] documented as of this encounter Visit Diagnoses Not on filedocumented in this encounter
--- OUTSIDE RECORDS SUMMARY | 2025-10-29 13:15 | XMS_ITS | Clinical Summary ---
Author Organization [facility] Address [address] [place] [address] Care Team Providers Care Stratigraphy Teacher Name Role Phone Unavailable Primary Care Provider Unavailabl e Social History Tobacco Use Types Packs/Day Years Used Date Smoking Tobacco: Never Assessed Comments Unknown Sex and Gender Information Value Date Recorded Sex Assigned at Not on file Legal Sex Female 8:22 PM EDT Gender Identity Not on file Sexual Orientation Not on file Last Filed Vital Signs Vital Sign Reading Time Taken Comments Blood Pressure - - Pulse - - Temperature - - Respiratory Rate - - Oxygen Saturation - - Inhaled Oxygen Concentration - - Weight 97.1 kg (214 lb) 03/09/2015 9:30 AM EDT Height 158.1 cm (5' 2.25 ) 03/09/2015 9:30 AM ED T Body Mass Index 38.83 03/09/2015 9:30 AM EDT Plan of Treatment Health Maintenance Due Date Last Done Comments [facility]-Depression Screening 1992 [facility]-/Child/Adol SDOH Screenings 1992 [facility]-Varicella Vaccines (1 of 2 - 13+ 2-dose series) 2005 [facility]- SDOH Screenings 2010 [facility]-Adult SDOH Screenings 2010 [facility]-DTaP,Tdap,and Td Vaccine s (1 - Tdap) 2011 [facility]-Hepatitis B Vaccines (1 of 3 - 19+ 3-dose series) 2011 [facility]-Pap Smear 2013 [facility]-Cervical Cancer Screening 2022 [facility]-HPV/Cotest 2022 [id number] Vaccine (1 - 20 25-26 season) 2025 [facility]-Influenza Vaccine (#1) 2025 [facility]-Zoster Vaccines (1 of 2) 2042 HPV Vaccines (No Doses Required) Completed [facility]-HIB Vaccines Aged Out No longer e ligible based on patient's age to complete this topic [facility]-Hepatitis A Vaccines Aged Out No longer eligible based on patient's age to complete this topic [facility]-IPV Vaccines Aged Out No longer e ligible based on patient's age to complete this topic [facility]-Pneumococcal Vaccine: Pediatrics (0 to 5 Years) and At-Risk Patients (6 to 49 Years) Aged Out No long er eligible based on patient's age to complete this topic [facility]-Rotavirus Vaccines Aged Out No lo nger eligible based on patient's age to complete this topic
--- OUTSIDE RECORDS SUMMARY | 2025-10-29 13:15 | XMS_ITS | Clinical Summary ---
Author Organization [facility] Address [address] [place] [address] Care Team Providers Care Moving Worker Name Role Phone Unavailable Primary Care Provider Unavailabl e Source Comments This information has been disclosed to you from confidential records protectedfrom disclosure by state law. You shall make no further disclosure of thisinformation without the specific, written, and informed release of theindividual to whom it pertains, or as otherwise permitted by law. A generalauthorization for the release of medical or other information is not sufficientfor the purposes of therelease of HIV test results or diagnoses. [id number] Allergies Active Allergy Reactions Criticality Noted Date Comments Budesonide 08/27/2017 But NOT other ICS Medications TRI-SPRINTEC, 28, 0.18/0.215/0.25 mg-35 mcg (28) tablet TAKE ONE TABLET BY MOUTH DAILY 84 tablet 8 12/09/2018 Active sertraline (ZOLOFT) 50 MG tablet TAKE ONE AND ONE-HALF TABLET BY MOUTH DAILY 135 tablet 12 09/24/2019 Active oseltamivir (TAMIFLU) 75 MG capsule Take 1 capsule (75 mg total) by mouth 2 times a day. 10 capsule 11/10/2019 Active montelukast (SINGULAIR) 10 mg tablet TAKE ONE TABLET BY MOUTH EVERY NIGHT AT BEDTIME 90 tablet 6 12/23/2019 Active albuterol (PROVENTIL;VENT LORETO;PROAIR) 90 mcg/actuation inhaler Inhale 2 puffs into the lungs every 6 hours as needed. 1 Inhaler 12 01/25/2020 Active Active Problems Problem Noted Date Diagnosed Date Anxiety 09/20/2018 Herpes simplex 10/15/2017 Overview (10/15/2017): Dx 2014 labial Uncomplicated asthma 08/27/2017 Overview (10/15/2017): Has inhaler FLu shot given 10/15/17 Obesity 08/27/2017 Resolved Problems Problem Noted Date Diagnosed Date Resolved Date Physical exam, annual 10/15/20172017 Overview (10/15/2017): Pap done 10/15/17 Encounter for initial prescr iption of contraceptives 10/15/2017 09/20/2018 Overview (10/15/2017): Sprintec (rx'd by PCP) Immunizations Immunization Administration Dates Next Due Influenza, quadrivalent, preservative-free 09/20 Influenza, trivalent, with preservative 08/08/20 17 Pneumococcal polysaccharide, 23-valent 8 Social History Tobacco Use Types Packs/Day Years Used Date Smoking Tobacco: Never Smokeless Tobacco: Never Alcohol Use Standard Drinks/Week Comments No 0 (1 standard drink = 0.6 oz pur e alcohol) PHQ-2 Answer Date Recorded PHQ-2 Score 0 08/24/2019 Comments No Sex and Gender Information Value Date Recorded Sex Assigned at Not on file Legal Sex Female 4:06 PM EDT Gender Identity Not on file Sexual Orientation Not on file Last Filed Vital Signs Vital Sign Reading Time Taken Comments Blood Pressure 138/82 08/15/2019 3:31 PM EDT Pulse 104 08/15/2019 3:31 PM EDT Temperature 36.6 C (97.9 F) 08/15/2019 3:30 PM EDT Respiratory Rate - - Oxygen Saturation - - Inhaled Oxygen Concentration - - Weight 102.8 kg (226 lb 9.6 oz) 08/15/2019 3:30 PM EDT Height 161.3 cm (5' 3.5 ) 06/03/2019 2:28 PM EDT Body Mass Index 39.51 06/03/2019 2:28 PM EDT Plan of Treatment Not on file Insurance BLUE ACCESS
--- OUTSIDE RECORDS SUMMARY | 2025-10-29 13:15 | XMS_ITS | Clinical Summary ---
Author Organization 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 120 Tablet 5 Active loratadine (CLARITIN) 10 mg Oral TabletIndicatio ns:allergic rhinitis Take 1 Tablet by mouth as needed for Other. Indications: inflammation of the nose due to an allergy 30 Tablet 1 5 Active ondansetron (ZOFRAN-ODT) 4 mg Oral Tablet, Rapid Dissolve Dissolve 1 Tablet by mouth every 6 hours as needed for Nausea for up to 30 days. 12 Tablet 5 025 Active Problems Problem Noted Date Diagnosed Date S/P laparoscopic cholecystectomy 10/08/2020 Symptomatic cholelithiasis 09/24/2020 Acute cholecystitis due to biliary calculus Encounters Date Type Department Care Team Description 10/07/2025 Results Follow-Up [facility] [address] [place] [address] Kriss Reyna MD PATHOLOGY TISSUE REQUEST 09/28/2025 11:08 AM EST Anesthesia Event [facility] [address] [place] [address] Nadja Woods MD Smiley Lopez, CARDIOLOGIST 09/28/2025 10:08 AM EST - 09/28/2025 11:59 PM EST Hospital Encounter [facility] [address] [place] [address] Kriss Reyna MD Miller, Bradley M, CRNA Judge, Lisa M, MD Preop testing (Primary Dx); Epigastric abdominal pain Discharge Disposition: Home or Self Care 09/28/2025 Telephone [facility] [address], [address]RD [place] [address] Kriss Reyna MD Other 09/27/2025 Results Follow-Up [facility] [address], 3RD [place] [address] Kriss Reyna MD US RIGHT UPPER QUADRANT 09/24/2025 9:53 AM EST - 09/24/2025 11:59 PM EST Hospital Encounter [place] [facility] [address] [place] [address] Kriss Reyna MD Epigastric abdominal pain Discharge Disposition: Home or Self Care 09/13/2025 3:45 PM EST Telemedicine [facility] [address], 3RD [place] [address] Kriss Reyna MD Epigastric abdominal pain (Primary Dx); Nausea and vomiting, unspecified vomiting type 09/13/2025 Telephone [facility] [address], 3RD [place] [address] Kriss Reyna MD 09/13/2025 Travel 2025 4:26 AM EDT - 2025 7:18 AM EDT Emergency [facility] [place] [address] Alberto Crenshaw MD Abdominal pain, unspecified abdominal location (Primary Dx); Vomiting and diarrhea Discharge Disposition: Home or Self Care from Last 3 Months Surgical History Surgery Date Site/Laterality Comments DENTAL SURGERY wisdom teeth removed TONSILLECTOMY CHOLECYSTECTOMY, LAPAROSCOPIC 09/25/2020 N/A LAPAROSCOPIC CHOLECYSTECTOMY ; Surgeon: Tucker Lynn DO; Location: [facility] MAIN OR; Service: General Medical History Medical History Date Comments Asthma Endometriosis GERD (gastroesophageal reflux disease) Family History Medical History Relation Name Comments Cancer Father Jesse Magaña Cancer Mother Ina Magaña Diabetes Mother Ina Magaña Heart Disease Mother Ina Magaña Stroke Mother Ina Magaña Anesth Problems Neg Hx Relation Name Status Comments Father Jesse Magaña Alive Mother Ina Magaña Alive Social History Tobacco Use Types Packs/Day [...] Mass Index 38.03 09/28/2025 10:26 AM EST Plan of Treatment Upcoming Encounters Date Type Department Care Team (Late st Contact Info) Description 11/23/2025 1:30 PM EST Office Visit [facility] [address] [facility] [address], 3RD [place] [address] Kriss Reyna MD [address] [place] [id number] Health Maintenance Due Date Last Done Comments Annual Wellness Exam 1995 DTaP/TDaP/Td (3 - Tdap) 06/08/2004 06/07/2004, 01/31 Hepatitis B Vaccine (1 of 3 - 19+ 3-dose series) 2011 Cervical Cancer Screening 2013 Pap Smear 2013 HPV/Pap Cotest 2022 Pneumococcal Vaccine 0-49 Aged Out 09/20/2018 No longer eligible based on patient's age to complete this topic COVID-19 Vaccine Completed 09/10/2025, , 08/21/2023, Additional history exists Influenza Vaccine Completed 09/10/2025, , 08/21/2023, Additional history exists Meningococcal B Vaccine Aged Out No l onger eligible based on patient's age to complete this topic Procedures Procedure Name Priority Date/Time Associated Diagnosis Comments ESOPHAGOGASTRODUODENOSCOPY (EGD) Routine 09/28/2025 11:30 AM EST Epigastric abdominal pain PATHOLOGY TISSUE REQUEST Routine 025 11:24 AM EST Preop testing Epigastric abdominal pain POCT URINE Routine 09/28/2025 10:35 AM EST Preop testing US RIGHT UPPER QUADRANT Routine 09/24/20 10:33 AM EST Epigastric abdominal pain URINALYSIS REFLEX STAT 2025 6:43 AM EDT UA W/REFLEX TO CULTURE STAT 6:43 AM EDT EXTRA ALVAREZ URINE CX STAT 2025 6:[address] ABD PEL ED FAST W CONTRAST STAT 6:10 AM EDT HUMAN CHORIONIC GONADOTROPIN QUANTITATIVE STAT 2025 4:52 AM EDT LACTIC ACID STAT 2025 4:52 AM EDT LIPASE LEVEL STAT 2025 4:52 AM EDT COMPREHENSIVE METABOLIC PANEL STAT 4:52 AM EDT CBC WITH DIFF STAT 2025 4:52 AM EDT SALINE LOCK IV STAT 2025 4:48 AM EDT from Last 3 Months Results * ESOPHAGOGASTRODUODENOSCOPY (EGD) (09/28/2025 11:30 AM [...] None Staff Staff Role Joey Metz CRNA SCREENER PERFUMER Jenna Child, THEO Call Center Coordinator Meggan Garcia RN Endoscopy Nurse Nadja Woods [...] AM EST) CASE REPORT Surgical Pathology Case: [id number] Authorizing Provider: Kriss Reyna MD Collected: 09/28/2025 1124 Ordering Location: [facility] ENDOSCOPY Received: 09/28/2025 1400 Pathologist: Shasta Paiz MD Specimens: A) - Gastric, Gastric Biopsies B) - Gastric, Gastric Polyp via Forceps 09/29/2025 4:40 PM EST [facility] FINAL DIAGNOSIS A. Gastric, biopsies: Gastric fundic mucosa with no significant diagnostic abnormalities. Helicobacter microorganisms are not identified. B. Gastric, polyp, biopsy via forceps: Fragments of fundic gland polyp. 09/29/2025 4:40 PM EST [facility] at 1640 EST GROSS DESCRIPTION A. Received in formalin, in a container labeled with the patient's name, hospital number, and Gastric Biopsies , are 2 encarnacion soft tissue fragments, 0.3 to 0.5 cm in greatest dimension. The fragments are entirely submitted in A1. Elina Hardy 09/28/2025 B. Received in formalin, in a container labeled with the patient's name, hospital number, and Gastric Polyp via Forceps , are 2 encarnacion soft tissue fragments, 0.3 to 0.4 cm in greatest dimension. The fragments are entirely submitted in B1. Elina Hardy 09/28/2025 09/29/2025 4:40 PM EST [facility] MICROSCOPIC DESCRIPTION The microscopic examination may have been rendered in whole, or in part, by analyzing high-resolution digital images (whole slide images) on the Colored [employer] Digital Pathology platform validated at [facility]. 09/29/2025 4:40 PM EST [facility] EMBEDDED IMAGES 09/29/2025 4:40 PM EST [facility] Tissue STOMACH STRUCTURE / Unknown 09/28/2025 11:24 AM EST 09/28/2025 2:00 PM EST Tissue specimen (specimen) STOMACH STRUCTURE / Unknown 09/28/2025 11:24 AM EST 09/28/2025 2:00 PM EST us Kriss Reyna MD PATHOLOGY ORDERABLES Final Re sult Performing Organization Address City/[facility]/ZIP Co de Phone Number [facility] [address] [place] [address] [place] [address] * POCT URINE (09/28/2025 10:35 AM EST) Preg Test, Ur Negative [facility] NURSING Lot Number [id number] [facility] Expiration Date 10/08/2026 [facility] SeriAl # RAMIR[facility]OMAS [facility] NURSING Control Line Yes YES/[facility] 09/28/2025 10:3 5 AM EST us Smiley Lopez APRN POINT OF CARE TEST ORDERABLES Final Result Performing Organization Address [facility]/ZIP Co de Phone Number [facility] [address] [place] [address], [facility] [phone] * US RIGHT UPPER QUADRANT (09/24/2025 10:33 [...] 09/24/2025 10:44 AM EST CLINICAL HISTORY: R10.13-Epigastric [id number]-VGI-[id number]-CM. COMPARISON: 09/24/2020. TECHNIQUE: US RIGHT UPPER QUADRANT on 09/24/2025 10:33 AM. FINDINGS: The liver was sonographically normal. There was no evidence of biliary ductal dilation. The gallbladder has been removed. The visualized portions of the pancreas and right kidney were unremarkable. Procedure Note Blayne Mendez MD - 09/24/2025 CLINICAL HISTORY: R10.13-Epigastric pjgy-WMP-15-CM. COMPARISON: 09/24/2020. TECHNIQUE: US RIGHT UPPER QUADRANT [...] of the ordering clinician. Kriss Reyna MD [facility] US ORDERABLES Final Resul t * (ABNORMAL) URINALYSIS REFLEX (2025 6:43 AM EDT) UA Color Straw 2025 7:05 AM EDT [facility] UA Appear Clear Clear 2025 7:05 AM EDT [facility] UA Glucose Negative Negative mg/dL 2025 7:05 AM EDT [facility] UA Ketones Trace (5 mg/dL)(A) Negative mg/dL 2025 7:05 AM EDT [facility] UA Blood 2+ (0.2 mg/dL)(A) Negative 2025 7:05 AM EDT [facility] UA pH 8.0 5.0 - 8.0 pH 2025 7:05 AM EDT [facility] UA Protein Negative Negative mg/dL 2025 7:05 AM EDT [facility] UA Urobilinogen Normal <=1 mg/dL 7:05 AM EDT [facility] UA Bili Negative Negative 2025 7:05 AM EDT [facility] UA Nitrite Negative Negative 2025 7:05 AM EDT [facility] UA Leuk Est Negative Negative 2025 7:05 AM EDT [facility] UA Spec Grav <1.005 1.001 - 1.035 no units 2025 7:05 AM EDT [facility] Comment:Reference range bettye d for random specimens only. UA WBC <1 0 - 4 /HPF 2025 7:05 AM EDT [facility] UA RBC 48(H) 0 - 3 /HPF 2025 7:05 AM EDT [facility] UA Squam Epi 1+ /LPF 2025 7:05 AM EDT [facility] UA Mucus Trace /LPF 2025 7:05 AM EDT [facility] Urine STRUCTURE OF URINARY TRACT PROPER / Unknown 2025 6:43 AM EDT 2025 6:47 AM EDT us Lary Oliveros NP URINE ORDERABLES Final Result Performing Organization Address City/[facility]/ZIP Co de Phone Number [facility], [address], [address] [place] [phone] * EXTRA ALVAREZ URINE CX (2025 6:43 AM EDT) Urine STRUCTURE OF URINARY TRACT PROPER / Unknown 2025 6:43 AM EDT 2025 6:47 AM EDT us Lary Oliveros NP MICROBIOLOGY - GENERAL ORDERA BLES Final Result Performing Organization Address City/[facility]/ZIP Co de Phone Number [facility] [address] [place], [place] [id number] * CT ABD PEL ED FAST W [...] contactthe office of the ordering clinician. us Lary Oliveros RECORDS AND INFORMATION MANAGER IMG CT ORDERABLES Final Resul t * (ABNORMAL) CBC WITH DIFF (2025 4:52 [...] 2025 5:04 AM EDT [facility] Love Percent 6.6 % 2025 5:04 AM EDT [facility] Eos Percent 2.6 % 2025 5:04 AM EDT [facility] Baso Percent 0.2 % 2025 5:04 AM EDT [facility] Neut # 6.2(H) 1.6 - 6.1 x10(3)/mcL 2025 5:04 AM EDT [facility] Comment:Neutrophils equals s egs plus bands IMMGRAN# 0.0 0.0 - 0.1 x10(3)/mcL 2025 5:04 AM EDT [facility] Comment:Automated count of m etamyelocytes, myelocytes and promyelocytes. An absolute IG <0.1 is reported as 0.0. Lymph # 1.5 1.2 - 3.9 x10(3)/mcL 2025 5:04 AM EDT [facility] Love # 0.6 0.3 - 0.9 x10(3)/mcL 2025 5:04 AM EDT [facility] Eos# 0.2 0.0 - 0.5 x10(3)/mcL 2025 5:04 AM EDT [facility] Baso # 0.0 0.0 - 0.1 x10(3)/mcL 2025 5:04 AM EDT [facility] [employer] [facility], [facility] Blood VENOUS BLOOD / Unknown Venipuncture / Unknown 2025 4:52 AM EDT 2025 4:58 AM EDT us Lary Oliveros NP HEMATOLOGY ORDERABLES Final R esult [facility] [address] [facility] [address], [place] [address] * HUMAN CHORIONIC GONADOTROPIN QUANTITATIVE (2025 4:52 AM EDT) Hcg Quant <1 <5 mIU/mL 2025 5:5 7 AM EDT [facility] Chromatin Blood VENOUS BLOOD / Unknown Venipuncture / Unknown 2025 4:52 AM EDT 2025 4:58 AM EDT Narrative [facility] - 2025 5:57 AM EDT Female (non-): 0-4.9 mIU/mL Female (postmenopausal): 0-8.1 mIU/mL Indeterminate values for (e.g., 5-25 mIU/mL) may be confirmed with a repeat test in 48-72 hours. Values in should double every 2-3 days for the first six weeks. Ingestion of josette doses of biotin (>5 mg/day) taken within 8 hours of drawing blood sample can interfere with this immunoassay test. Lary Oliveros NP CHEMISTRY ORDERABLES Final Re sult Performing Organization Address [facility] Co de Phone Number [facility] [address] , [place] [address] * LIPASE LEVEL (2025 4:52 AM EDT) [facility] Lipase Lvl 22 13 - 60 U/L 2025 6:12 AM EDT [facility] Chromatin Blood VENOUS BLOOD / Unknown Venipuncture / Unknown 2025 4:52 AM EDT 2025 4:58 AM EDT Lary Oliveros NP CHEMISTRY ORDERABLES Final Re sult Performing Organization Address [facility] Co de Phone Number [facility] [employer] , [address] [place] [phone] * LACTIC ACID (2025 4:52 AM EDT) [facility] Lactic Acid 1.0 0.5 - 1.9 mmol/L 2025 5:36 AM EDT [facility] Blood VENOUS BLOOD / Unknown Venipuncture / Unknown 2025 4:52 AM EDT 2025 4:57 AM EDT us Lary Oliveros NP CHEMISTRY ORDERABLES Final Re sult [facility] [address] [facility] , [place] [address] * (ABNORMAL) COMPREHENSIVE METABOLIC PANEL (2025 4:52 [...] 5:23 AM EDT [facility] Glucose Lvl 122(H) 70 - 99 mg/dL 2025 5:23 AM EDT [facility] BUN 13 6 - 20 mg/dL 2025 5:23 AM EDT [facility] Creatinine 0.76 0.51 - 1.30 mg/dL 2025 5:23 AM EDT [facility] Albumin 4.3 3.5 - 5.2 gm/dL 2025 5:23 AM EDT [facility] Total Protein 6.8 6.4 - 8.3 gm/dL 2025 5:23 AM EDT [facility] Bili Total 0.9 0.2 - 1.3 mg/dL 2025 5:23 AM EDT [facility] ALT 19 <=41 U/L 2025 5:23 AM EDT [facility] AST 10 <=40 U/L 2025 5:23 AM EDT [facility] Alk Phos 76 36 - 123 U/L 2025 5:23 AM EDT [facility] eGFR (CKD-EPIcr 2020) 105 >=60 mL/min/1.7 3 m2 2025 5:23 AM EDT [facility] Comment:Estimated GFR was ca lculated using the CKD-EPIcr (2020) equation refit without race. The equation is recommended by the National Kidney Foundation - [place] [employer] Neph[employer] Task Force. Blood VENOUS BLOOD / Unknown Venipuncture / Unknown 2025 4:52 AM EDT 2025 4:58 AM EDT us Lary Oliveros NP CHEMISTRY ORDERABLES Final Re sult [facility] [address] [facility] , [place] [address] from Last 3 Months Insurance ANTHEM PPO ANTHEM PPO Advance Directives For more information, please contact: [phone] * Full Code (Latest Code Status on File) Date Activated Date Inactivated Comments 09/24/2020 1:34 PM 09/24/2020 7:03 PM
[2025-10-29 13:19] LABS: Albumin Level 4.8 g/dl (3.5-5.0); Chloride 103 mmol/L (98-107); Potassium 3.9 mmoL/L (3.5-5.1); Sodium 138 mmol/L (136-145)
[2025-10-29 13:21] LABS: Blood Urea Nitrogen 21 mg/dl (7-17); Creatinine Clearance Estimated 155 mL/min (50-200); Creatinine,Serum 0.80 mg/dl (0.52-1.04); Estimated Glomerular Filt Rate 83 ml/min (>60); GFR (African American) 100 ML/MIN (>60)
[2025-10-29 13:22] LABS: Alanine Aminotransferase 50 U/L (12-78); Albumin/Globulin Ratio 1.7 (1.1-1.8); Alkaline Phosphatase 72 U/L (38-126); Anion Gap 14.9 mEq/L (5-15); Aspartate Amino Transferase 28 U/L (14-36); Bilirubin,Total 0.8 mg/dl (0.2-1.3); Calcium 9.2 mg/dl (8.4-10.2); Carbon Dioxide 24 mmol/L (22.0-30.0); Globulin 2.8 g/dL (1.3-3.2); Glucose 127 mg/dl (74-100); Lipase 35 U/L (23-300); Magnesium 1.5 mg/dl (1.6-2.3); Total Protein,Serum 7.6 g/dl (6.3-8.2)
[2025-10-29] MEDS: SODIUM CHLORIDE 0.9% 10ML SYR (RAD ONLY) 10 ML IV (13:29)
[2025-10-29] MEDS: IOPAMIDOL-370 (76%);100ML BOTTLE 75 ML IV (13:29)
[2025-10-29 13:32] LABS: RBC Morphology Normal; Total Cells Counted 100
[2025-10-29 14:15] LABS: Bacteria,Urine Trace /lpf; Squamous Epithelial Cell,Urine Occasional #/hpf (0-5); WBC,Urine Occasional #/hpf (0-3)
[2025-10-29 16:43] LABS: Reflex Lactic Add Lactic Reflex
== END 2025-10-29 15:26 | disposition home or self-care (01) ==
PROVIDERS: Physician Assistant; Emergency Provider Student in an Organized Health Care Education/Training Program
DX: R10.9 Unspecified abdominal pain (principal); R11.2 Nausea with vomiting, unspecified; R19.7 Diarrhea, unspecified; D72.829 Elevated white blood cell count, unspecified; E87.20 Acidosis, unspecified; E83.42 Hypomagnesemia; Z88.8 Allergy status to other drugs, medicaments and biological substances; Z91.018 Allergy to other foods
CPT/HCPCS: 74177; 80053; 81001; 83605; 83690; 83735; 84703; 85007; 85025; 85027; 96361; 96374; 96375; 99285; J1885; J2405; J7030; Q9967